=== PATIENT | male | born 1960 | race Caucasian/White ===

== ENCOUNTER → 2018-11-26 | Outpatient (CLI) | payer OTHER ==
[2018-11-26 07:38] LABS: Blood Urea Nitrogen 14 mg/dL (9-20)
--- NOTE | 2018-11-26 09:07 | CT ---
EXAMINATION TYPE: CT pelvis w con DATE OF EXAM: 11/26/2018 COMPARISON: NONE HISTORY: 58-year-old male recent diagnosis of prostate cancer TECHNIQUE: Contiguous axial scanning of the pelvis following administration of 100 ml Isovue 300 IV c ontrast. Delayed images through the bladder and coronal/sagittal reconstructions performed. CT DLP: 555.5 mGycm Automated exposure control for dose reduction was used. FINDINGS: No hydronephrosis. Symmetric uptake of contrast by both kidneys. Nonobstructive calculi are present o n both sides, approximately 3 on the right measuring up to 4 mm and approximately 4 on the left measu ring up to 6 mm. Additional hypodense lesions in both kidneys too small for accurate CT characterization, likely corti jocelynn cysts measuring up to 1.1 cm. Mild to moderate arthroscopic calcifications within the infrarenal abdominal aorta. No dilated small bowel, free fluid, or free air. Moderate stool burden. Redundant sigmoid colon. No p ericolonic inflammatory change. Normal appendix. No retroperitoneal lymphadenopathy in the visualized mid to lower abdomen. Scattered prominent but nonenlarged mesenteric lymph nodes measure up to 5 mm. Mild circumference of bladder wall thickening. Prostate gland shows mildly heterogeneous enhancement and measures 4.3 cm wide. Pelvic lymph nodes. No abnormal fluid collection in the pelvis or pelvic ly mphadenopathy. Bones: Mild degenerative changes at the hips and right greater than left SI joints. Facet arthropathy lower lumbar spine. No suspicious osseous lesion seen. IMPRESSION: 1. Mild prostatomegaly with mild heterogeneous enhancement. The patient's known prostate cancer is no t well-demonstrated by CT. 2. No evidence for pelvic/retroperitoneal lymphadenopathy or suspicious osseous lesions in the lower abdomen or pelvis. 3. Bilateral nonobstructive nephrolithiasis measuring up to 6 mm. Hypodense lesions in the kidneys me asure up to 1.1 cm, too small for accurate CT characterization, likely cysts. 4. Circumferential bladder wall thickening could represent chronic bladder wall hypertrophy or cystit is. Clinically correlate.
--- NOTE | 2018-11-26 18:26 | NM ---
EXAMINATION TYPE: NM bone scan whole body DATE OF EXAM: 11/26/2018 COMPARISON: Correlation CT pelvis same day HISTORY: 58-year-old male history of prostate cancer diagnosed in November 2018 Technique: Delayed whole-body scanning was performed following the injection of 25.7 mCi Tc 99m MDP. Whole-body anterior and posterior images acquired 5 hours post injection. FINDINGS: Degenerative tracer activity at the left hip, shoulders, sternoclavicular joints. No suspicious distr ibution of tracer activity to suggest osseous metastatic disease. IMPRESSION: Some scattered mild degenerative tracer activity. No scintigraphic evidence for osseous metastatic di sease.
== END ==
LOC: RADCTMAIN 06:58
PROVIDERS: ATTEND Urology
DX: C61 Malignant neoplasm of prostate (principal)
CPT/HCPCS: 82565; 84520; 72193; 36415; 78306; A9503; Q9967

== ENCOUNTER → 2018-12-20 | Outpatient (CLI) | payer OTHER ==
[2018-12-20 11:04] LABS: Basophils % (A) 1 %; Eosinophils # (A) 0.1 k/uL (0-0.7); Eosinophils % (A) 4 %; HCT 43.4 % (39.0-53.0); HGB 13.9 gm/dL (13.0-17.5); Lymphocytes % (A) 35 %; MCH 28.2 pg (25.0-35.0); MCV 88.2 fL (80.0-100.0); Mean Platelet Volume 8.6; Monocytes # (A) 0.2 k/uL (0-1.0); Monocytes % (A) 6 %; Neutrophils # (A) 1.4 k/uL (1.3-7.7); Neutrophils % (A) 52 %; Platelet Count 185 k/uL (150-450); RBC 4.93 m/uL (4.30-5.90); RDW 12.9 % (11.5-15.5); WBC 2.8 k/uL (3.8-10.6)
[2018-12-20 11:26] LABS: Anion Gap 10 mmol/L; Blood Urea Nitrogen 11 mg/dL (9-20); Calcium 10.1 mg/dL (8.4-10.2); Carbon Dioxide 28 mmol/L (22-30); Chloride 105 mmol/L (98-107); Glucose 88 mg/dL (74-99); Potassium 4.4 mmol/L (3.5-5.1); Sodium 143 mmol/L (137-145)
== END | disposition home or self-care (01) ==
LOC: LABPAT 09:27
PROVIDERS: ATTEND Urology
DX: Z01.818 Encounter for other preprocedural examination (principal); R53.83 Other fatigue; C61 Malignant neoplasm of prostate; Z79.899 Other long term (current) drug therapy; Z01.812 Encounter for preprocedural laboratory examination
CPT/HCPCS: 80048; 85025; 86850; 86900; 86901; 93005

== ENCOUNTER 2018-12-27 05:54 | Inpatient (IN) | payer OTHER ==
--- NOTE | 2018-12-26 11:35 | P.GSHP ---
History of Present Illness H&P Date: 12/20/18 Chief Complaint: Prostate cancer The patient is a 58-year-old white male whose PSA level was 4.8 in April 2017 and August 2018. A repeat PSA level in September 2018 was 5.1. CARYN revealed the prostate to be moderately enlarged but smooth. He underwent a prostate ultrasound, revealing a prostate volume of 23.4 mL. 5 out of 6 left-sided biopsies showed Mick 68 adenocarcinoma. On the right side, only the right apical biopsy was positive (Mick 3+4, 41%). His metastatic evaluation consisted of a bone scan and computed tomography scan, showing no metastases. He is relatively free of voiding symptoms, but does report occasional erectile dysfunction. - Cardiovascular Cardiovascular: Reports high blood pressure Past Medical History - Past Family History Sister(s) Family Medical History: Cancer Medications and Allergies Home Medications Medication Instructions Recorded Confirmed Type Multivitamin [Multivitamins Adult 1 each PO DAILY 12/21/18 12/21/18 History Gummies] Telmisartan/Hydrochlorothiazid 1 each PO DAILY 12/21/18 12/21/18 History [Micardis Hct 80-12.5 mg Tablet] amLODIPine [Norvasc] 10 mg PO DAILY 12/21/18 12/21/18 History Allergies Allergy/AdvReac Type Severity Reaction Status Date / Time No Known Allergies Allergy Verified 12/21/18 11:10 Surgical - Exam - General well developed, well nourished, no distress - Neck no masses, trachea midline - Respiratory normal respiratory effort, clear to auscultation - Cardiovascular Rhythm: regular Abnormal Heart Sounds: no systolic murmur, no diastolic murmur, no rub, no S3 Gallop, no S4 Gallop, no click, no other - Abdomen Abdomen: soft, non tender, no guarding, no rigid, no rebound - Genitourinary normal penis with no external lesions, testicles non-tender - Rectum Rectum: normal sphincter tone, no masses, other (Prostate mildly enlarged and smooth) - Neurologic no disoriented, no combative - Psychiatric oriented to time, oriented to person, oriented to place, speech is normal, memory intact Assessment and Plan (1) Adenocarcinoma of prostate Status: Acute Code(s): C61 - MALIGNANT NEOPLASM OF PROSTATE SNOMED Code(s): 374410415 Plan: Robotic-assisted laparoscopic prostatectomy (RALP) with bilateral pelvic lymphadenectomy. The procedure has been reviewed in detail with the patient and his . It has been decided to perform a partial right nerve sparing procedure, but no attempt will be made to preserve the left neurovascular bundle. The anticipated perioperative course has been discussed, along with potential risks. These include anesthesia, bleeding, infection, neurovascular injury, bowel injury, urinary leak, lymphocele, and vesical neck contracture. The patient is aware of the likelihood of postoperative urinary incontinence, which may be permanent. He also understands the likelihood of erectile dysfunction despite partial preservation of the right neurovascular bundle. The possible need to convert to an open procedure was discussed, as was the possible need for adjuvant therapy.
[~2018-12-27 05:54] MED LIST: DEXAMETHASONE SOD PHOSPHATE 10 MG/ML 1 ML VIAL IV ONE; LIDOCAINE 1% 20 ML VIAL (10MG/ML) FOR IV START INTRADERMA PRN; MIDAZOLAM (PF) 2 MG/2 ML VIAL IV PRN; ONDANSETRON 4 MG/2 ML VIAL IVP ONE; ceFAZolin IN SWFI 2 GM/20 ML SYRINGE IVP ONE; fentaNYL (PF) 50 MCG/ML 2 ML AMP IV PRN
[2018-12-27] MEDS ORDERED: HEPARIN SODIUM,PORCINE 5,000 UNIT/ML 1 ML VIAL SQ STA (06:30)
[2018-12-27] MEDS: LACTATED RINGERS 1,000 ML IV SCH ×2 (06:43→20:08)
[2018-12-27] MEDS ORDERED: VECURONIUM 10 MG VIAL IV ONE (07:19)
[2018-12-27] MEDS ORDERED: ePHEDrine SULFATE/0.9% NACL/PF 50 MG/5 ML SYRINGE IV ONE (07:19)
[2018-12-27] MEDS ORDERED: PROPOFOL 10 MG/ML 20 ML VIAL IV ONE (07:19)
[2018-12-27] MEDS ORDERED: PHENYLEPHRINE-0.9% NACL SYG 1 MG/10 ML SYRINGE ONE (07:19)
[2018-12-27] MEDS ORDERED: MIDAZOLAM 2 MG/2 ML VIAL ONE (07:19)
[2018-12-27] MEDS ORDERED: SUCCINYLCHOLINE CHLORIDE 100 MG/5 ML SYR IV ONE (07:19)
[2018-12-27] MEDS ORDERED: NEOSTIGMINE 1 MG/ML 10 ML VIAL ONE (07:19)
[2018-12-27] MEDS ORDERED: fentaNYL (PF) 50 MCG/ML 2 ML AMP ONE (07:19)
[2018-12-27] MEDS ORDERED: GLYCOPYRROLATE 0.2 MG/ML 2 ML VIAL ONE (07:19)
[2018-12-27] MEDS ORDERED: LIDOCAINE 1% INJ 10MG/ML (20 ML MDV) ONE (07:19)
[2018-12-27] MEDS ORDERED: BUPIVACAINE (PF) 0.25% 30 ML VIAL SQ ONE ×2 (07:55)
[2018-12-27] MEDS ORDERED: LACTATED RINGERS 1,000 ML IV ONE (10:25)
[2018-12-27] MEDS ORDERED: ACETAMINOPHEN TAB 325 MG TAB PO PRN (10:52)
[2018-12-27] MEDS ORDERED: ONDANSETRON 4 MG/2 ML VIAL IVP PRN (10:52)
[2018-12-27] MEDS: HYDROmorphone 0.5 MG/0.5 ML SYRINGE IVP PRN ×2 (11:26→11:33)
[2018-12-27 13:38] VITALS: BMI 23.9
[2018-12-27] MEDS: KETOROLAC 30 MG/ML 1 ML VIAL IVP PRN ×2 (14:40→23:26)
[2018-12-27] MEDS: DEXTROSE 5%-0.45% NACL 1,000 ML IV SCH ×2 (14:43→20:08)
--- NOTE | 2018-12-27 18:49 | P.OP ---
Date of Procedure: 12/27/18 Preoperative Diagnosis: Adenocarcinoma of the Prostate Postoperative Diagnosis: Same Procedure(s) Performed: Robotic-assisted Laparoscopic Prostatectomy (RALP) with Bilateral Pelvic Lymphadenectomy Anesthesia: FRANK Surgeon: Driss Ward Spanish Medical Interpreter #1: Marely Melendrez Estimated Blood Loss (ml): 50 IV fluids (ml): 1,400 Pathology: other (prostate, seminal vesicles, bilateral pelvic lymph nodes) Condition: stable Disposition: PACU Indications for Procedure: The patient is a 58-year-old white male whose PSA level was 4.8 in April 2017 and August 2018. A repeat PSA level in September 2018 was 5.1. CARYN revealed the prostate to be moderately enlarged but smooth. He underwent a prostate ultrasound, revealing a prostate volume of 23.4 mL. 5 out of 6 left-sided biopsies showed Mick 68 adenocarcinoma. On the right side, only the right apical biopsy was positive (Cement 3+4, 41%). His metastatic evaluation consisted of a bone scan and computed tomography scan, showing no metastases. He is relatively free of voiding symptoms, but does report occasional erectile dysfunction. Operative Findings: No evidence of extraprostatic disease. Description of Procedure: The patient was taken in the operating room and placed in the dorsal lithotomy position, with his legs supported in Bill stirrups. He was carefully positioned on a beanbag for stability. The abdomen and external genitalia were prepped and draped sterilely. A Waite catheter was inserted. The Veress needle was passed through the anterior abdominal wall immediately cephalad to the umbilicus, and insufflation was performed to a pressure of 20 mm Hg. Once insufflation was performed, the Veress needle was removed and a supraumbilical incision was made, through which an 8 mm camera port was placed. Under camera guidance, 3 8 mm robotic ports were placed, 2 on the left and one on the right. An additional 12 mm port was placed on the right lateral side for use as an culture media laboratory assistant port. A 5 mm port was placed cephalad and to the right of the camera port for suction. The patient was placed in Trendelenburg position, and docking was then performed to the da Zo system utilizing a 4-arm approach. The abdomen was examined. The sigmoid colon was mobilized out of the pelvis. The peritoneum was incised lateral to the medial umbilical ligaments bilaterally , exposing the pubis. The peritoneum was then incised across the midline, allowing the bladder flap to be taken down. The endopelvic fascia was opened bilaterally, and muscular attachments from the urogenital diaphragm were swept away from the prostate. Bilateral pelvic lymphadenectomies were performed in the standard fashion. The peritoneal incisions were extended in a cephalad direction, and the vas deferens were divided bilaterally. Margins of dissection were the bifurcation of the iliac vessels proximally, the circumflex iliac vein distally, the genitofemoral nerve laterally, and the obturator nerve medially. A combination of sharp and blunt dissection was used. Care was taken to avoid any neurovascular injury, and the use of monopolar electrocautery was avoided immediately adjacent to neurovascular structures. The lymphatic package was clipped distally. No enlarged lymph nodes were encountered. There were no complications. The vesical neck was incised transversely, down to the lumen. The Waite catheter was brought out through the anterior vesical neck incision and was used for traction. The posterior aspect of the vesical neck was incised, such that the full-thickness of the vesical neck was divided. The anterior layer of the Denonvilliers fascia was incised, exposing the vas deferens. Each were isolated and divided. Next, each of the seminal vesicles were dissected away from adjacent tissues, and vascular attachments were cauterized and divided. The posterior leaf of Denonvilliers fascia was incised transversely, allowing entry into the plane between the prostate and rectum. With lateral spreading, this plane was developed down to the apex. This exposed the lateral vascular pedicles bilaterally. These were clipped and divided in an antegrade fashion, down to the apex. The use of electrocautery was avoided on the right side to prevent thermal damage to the nerves, as a partial nerve sparing procedure was performed on the right. No attempt was made to preserve the left neurovascular bundle.. The remaining apical attachments were swept away from the prostate. The dorsal venous complex was incised, as well as periurethral tissue. At this point, only the urethra remained intact. This was transected immediately distal to the prostatic apex using cold scissors. The specimen was placed within a specimen bag. The dorsal venous complex was sutured using a V-Loc suture in a running fashion. The suture was passed through the periosteum of the pubis periurethral support. A second V-Loc suture was then used to place the Florin stitch, incorporating the rhabdosphincter and the edge of Denonvilliers fascia. This allowed the bladder to be taken down to the urethra, leaving the vesical neck immediately adjacent to the urethra. The vesical neck was somewhat larger in caliber than the urethra. The vesicourethral anastomosis was then performed using a V-Loc suture in a running fashion. A parachute technique was utilized to account for the discrepancy in the caliber of the vesical neck versus the urethra. After completing the anastomosis, an 18-Tamazight Waite catheter was placed and approximately 150 mL of 0.9 normal saline were instilled into the bladder. No extravasation of irrigant from the vesicourethral anastomosis was noted. The patient was returned to the supine position. Undocking was performed, and the specimen bag sutures were passed through the camera port. After removing all the ports and allowing all of the CO2 to be released from the peritoneal cavity, the camera port incision was enlarged to allow removal of the surgical specimen. The fascia of this incision was then closed using 0 Vicryl suture in an interrupted [id number] fashion. Each of the skin incisions were then closed using 4-0 Monocryl suture in a subcuticular fashion. Marcaine was injected at each of the incision sites. Dermabond was applied to each incision. The Waite catheter was connected to gravity drainage. All sponge and needle counts were correct. The patient tolerated the procedure well was taken to the recovery room in stable condition.
[2018-12-27] MEDS: HYDROmorphone 1 MG/ML 1 ML SYRINGE IVP PRN (19:30)
[2018-12-27] MEDS: HEPARIN SODIUM,PORCINE 5,000 UNIT/ML 1 ML VIAL SQ SCH (20:08)
[2018-12-28] MEDS: HYDROmorphone 1 MG/ML 1 ML SYRINGE IVP PRN ×2 (00:44→09:42)
[2018-12-28] MEDS: DEXTROSE 5%-0.45% NACL 1,000 ML IV SCH ×3 (03:37→21:52)
[2018-12-28] MEDS: KETOROLAC 30 MG/ML 1 ML VIAL IVP PRN ×3 (06:46→23:02)
[2018-12-28] MEDS: HEPARIN SODIUM,PORCINE 5,000 UNIT/ML 1 ML VIAL SQ SCH ×2 (09:42→20:30)
[2018-12-28] MEDS: LOSARTAN 50 MG TAB PO SCH (09:43)
[2018-12-28] MEDS: HYDROCHLOROTHIAZIDE 12.5 MG CAP PO SCH (09:43)
[2018-12-28] MEDS: amLODIPine 10 MG TAB PO SCH (09:43)
[2018-12-28] MEDS ORDERED: HYDROcodone/APAP 5-325MG 1 EACH TAB PO PRN (11:26)
--- NOTE | 2018-12-28 18:25 | P.PN ---
Subjective Progress Note Date: 12/28/18 Principal diagnosis: is: POD #1, s/p RALP Patient is tolerating CLD but has only ambulated once. He has no specific complaints. Objective - Vital Signs Vital signs: Vital Signs Temp 97.6 F 12/28/18 07:00 Pulse 65 12/28/18 07:00 Resp 16 12/28/18 07:00 BP 116/72 12/28/18 07:00 Pulse Ox 97 12/28/18 07:00 Intake & Output 12/27/18 12/28/18 12/28/18 18:59 06:59 18:59 Intake Total 2024 200 Output Total 675 1950 1550 Balance 1350 -1950 -1350 Intake: IV 1900 Intake, IV Titration 125 Amount Dextrose 5%-0.45% NaCl 1, 125 000 ml @ 125 mls/hr IV . Q8H TROY Rx#:[id number] Other 200 Output: Urine 625 1950 1550 Uretheral (Waite) 1550 Estimated Blood Loss 50 Other: Voiding Method Indwelling Catheter Indwelling Catheter Indwelling Catheter # Voids 3 - Constitutional General appearance: Present: average body habitus, cooperative, no acute distress - Gastrointestinal Gastrointestinal Comment(s): Soft, non-distended. Incisions clean and dry. Urine clear per Waite. - Psychiatric Psychiatric: Present: A&O x's 3, appropriate affect Assessment and Plan (1) Adenocarcinoma of prostate Current Visit: Yes Status: Acute Code(s): C61 - MALIGNANT NEOPLASM OF PROSTATE SNOMED Code(s): 524599557 Plan: Patient is overall doing well. Ambulation encouranged. Anticipate discharge home tomorrow.
[2018-12-28] MEDS: LACTATED RINGERS 1,000 ML IV SCH (20:26)
[2018-12-28] MEDS: HYDROcodone/APAP 5-325MG 1 EACH TAB PO PRN (21:52)
[2018-12-29] MEDS: DEXTROSE 5%-0.45% NACL 1,000 ML IV SCH ×2 (04:01→12:17)
[2018-12-29] MEDS: HEPARIN SODIUM,PORCINE 5,000 UNIT/ML 1 ML VIAL SQ SCH (07:26)
[2018-12-29] MEDS: LOSARTAN 50 MG TAB PO SCH (07:26)
[2018-12-29] MEDS: amLODIPine 10 MG TAB PO SCH (07:27)
[2018-12-29] MEDS: HYDROcodone/APAP 5-325MG 1 EACH TAB PO PRN (07:27)
[2018-12-29] MEDS: HYDROCHLOROTHIAZIDE 12.5 MG CAP PO SCH (07:27)
[2018-12-29 08:03] VITALS: RESP 12
--- NOTE | 2018-12-29 09:29 | P.DS ---
Providers Date of admission: 12/27/18 05:54 Expected date of discharge: 12/29/18 Attending physician: Driss Ward Primary care physician: Wes Dumas - Discharge Diagnosis(es) (1) Adenocarcinoma of prostate Current Visit: Yes Status: Acute Hospital Course: On the day of admission, the patient underwent an uncomplicated robotic assisted laparoscopic prostatectomy (RALP) with bilateral pelvic lymphadenectomy. The postoperative course was unremarkable. He remained afebrile with stable vital signs. On the first postoperative day, he experienced considerable abdominal wall discomfort, limiting his mobility. He ambulated once. On the second postoperative day, he was feeling considerably better. He was tolerating diet but reported a poor appetite. However, he was drinking plenty of fluids. Procedures: RALP with bilateral pelvic lymphadenectomy on 12/27/2018. Patient Condition at Discharge: Good Plan - Discharge Summary Discharge Rx Participant: No New Discharge Prescriptions: New Ciprofloxacin HCl [Cipro] 250 mg PO Q12HR #6 tablet Hydrocodone/Acetaminophen [[place] 5-325] 1 - 2 each PO Q4HR PRN #6 tab PRN Reason: Pain Ketorolac [Toradol] 10 mg PO Q6HR #12 tab No Action amLODIPine [Norvasc] 10 mg PO DAILY Telmisartan/Hydrochlorothiazid [Micardis Hct 80-12.5 mg Tablet] 1 tab PO DAILY Multivitamin [Multivitamins Adult Gummies] 1 tab PO DAILY Discharge Medication List Multivitamin [Multivitamins Adult Gummies] 1 tab PO DAILY 12/21/18 [History] Telmisartan/Hydrochlorothiazid [Micardis Hct 80-12.5 mg Tablet] 1 tab PO DAILY 12/21/18 [History] amLODIPine [Norvasc] 10 mg PO DAILY 12/21/18 [History] Ciprofloxacin HCl [Cipro] 250 mg PO Q12HR #6 tablet 12/28/18 [Rx] Hydrocodone/Acetaminophen [[place] 5-325] 1 - 2 each PO Q4HR PRN #6 tab 12/28/18 [ Rx] Ketorolac [Toradol] 10 mg PO Q6HR #12 tab 12/29/18 [Rx] Follow up Appointment(s)/Referral(s): Patel Emmanuel MD [STAFF PHYSICIAN] - 01/08/19 Activity/Diet/Wound Care/Special Instructions: Discharge home with Waite catheter. Instruct patient to use overnight drainage bag as well as urinary leg bag. Okay to shower. Diet as tolerated. No lifting , driving, or strenuous activity. Reassure patient that abdominal wall ecchymosis and penoscrotal swelling are normal. Instruct patient to begin taking antibiotics one day prior to Waite catheter removal. Discharge Disposition: HOME SELF-CARE
[2018-12-29 15:24] VITALS: BP 118/67; PULSE 75; TEMP 98.6
== END 2018-12-29 16:30 | disposition home or self-care (01) | DRG 708 ==
LOC: 2ORMAIN 05:54 → 4SSUR 11:16
PROVIDERS: ADMIT Urology; ATTEND Urology
PROC: 07BC4ZZ Excision of Pelvis Lymphatic, Percutaneous Endoscopic Approach (ICD-10-PCS; 2018-12-27)
PROC: 8E0W4CZ Robotic Assisted Procedure of Trunk Region, Percutaneous Endoscopic Approach (ICD-10-PCS; 2018-12-27)
PROC: 0VT04ZZ Resection of Prostate, Percutaneous Endoscopic Approach (ICD-10-PCS; principal; 2018-12-27 07:30)
DX: C61 Malignant neoplasm of prostate (principal); N52.9 Male erectile dysfunction, unspecified; I10 Essential (primary) hypertension; Z87.442 Personal history of urinary calculi; Z79.899 Other long term (current) drug therapy
CPT/HCPCS: 86850; 86900; 86901; 88307; 88309; 94760

== ENCOUNTER → 2019-01-16 | Outpatient (CLI) | payer OTHER | END | disposition home or self-care (01) | LOC: LABWHC1 13:20 | PROVIDERS: ATTEND Urology | DX: C61 Malignant neoplasm of prostate (principal) | CPT/HCPCS: 36415; 84153 ==

== ENCOUNTER → 2019-02-21 | Outpatient (CLI) | payer OTHER | END | disposition home or self-care (01) | LOC: LABWHC1 13:55 | PROVIDERS: ATTEND Urology | DX: C61 Malignant neoplasm of prostate (principal) | CPT/HCPCS: 36415; 84153 ==

== ENCOUNTER → 2019-05-30 | Outpatient (CLI) | payer OTHER | END | disposition home or self-care (01) | LOC: LABWHC1 10:54 | PROVIDERS: ATTEND Urology | DX: C61 Malignant neoplasm of prostate (principal) | CPT/HCPCS: 36415; 84153 ==

== ENCOUNTER 2019-06-13 11:24 | Emergency (ER) | payer OTHER ==
--- NOTE | 2019-06-13 11:47 | ED ---
Upper Extremity HPI - General Chief Complaint: Extremity Injury, Upper Stated Complaint: Finger injury Time Seen by Provider: 06/13/19 11:35 Source: patient Mode of arrival: ambulatory Limitations: no limitations - History of Present Illness Initial Comments: Patient is a 59-year-old male presenting to the emergency Department with complaints of stiffness and pain in his right middle finger x 1 month. Patient states he fell onto his right hand and injured his right middle finger about a month ago. Patient states he has had minimal pain in the finger but he has been unable to bend the finger. Patient states his also been swollen since the fall. Patient is right-hand dominant. Patient has no other complaints at this time. He denies fever, chills. - Related Data Home Medications Medication Instructions Recorded Confirmed Multivitamin [Multivitamins Adult 1 tab PO DAILY 12/21/18 12/27/18 Gummies] Telmisartan/Hydrochlorothiazid 1 tab PO DAILY 12/21/18 12/27/18 [Micardis Hct 80-12.5 mg Tablet] amLODIPine [Norvasc] 10 mg PO DAILY 12/21/18 12/27/18 Previous Rx's Medication Instructions Recorded Ciprofloxacin HCl [Cipro] 250 mg PO Q12HR #6 tablet 12/28/18 Hydrocodone/Acetaminophen [Cotopaxi 1 - 2 each PO Q4HR PRN #6 tab 12/28/18 5-325] Ketorolac [Toradol] 10 mg PO Q6HR #12 tab 12/29/18 Allergies Allergy/AdvReac Type Severity Reaction Status Date / Time No Known Allergies Allergy Verified 06/13/19 11:27 Review of Systems ROS Statement: Those systems with pertinent positive or pertinent negative responses have been documented in the HPI. ROS Other: All systems not noted in ROS Statement are negative. Past Medical History Past Medical History: Cancer, Hypertension Additional Past Medical History / Comment(s): hx. prostate cancer, kidney stones History of Any Multi-Drug Resistant Organisms: None Reported Past Surgical History: Tonsillectomy Additional Past Surgical History / Comment(s): colonoscopy Past Anesthesia/Blood Transfusion Reactions: No Reported Reaction Past Psychological History: No Psychological Hx Reported Smoking Status: Never smoker - Past Family History Sister(s) Family Medical History: Cancer General Exam - General Exam Comments Initial Comments: GENERAL: Well-appearing, well-nourished and in no acute distress. HEAD: Atraumatic, normocephalic. EYES: Pupils equal round and reactive to light, extraocular movements intact, sclera anicteric, conjunctiva are normal. ENT: Nares patent, oropharynx clear without exudates. Moist mucous membranes. NECK: Normal range of motion, supple without lymphadenopathy or JVD. LUNGS: Breath sounds clear to auscultation bilaterally and equal. No wheezes rales or rhonchi. HEART: Regular rate and rhythm without murmurs, rubs or gallops. ABDOMEN: Soft, nontender, normoactive bowel sounds. No guarding, no rebound. No masses appreciated. : Deferred EXTREMITIES: Patient has swelling of the right middle finger, decreased range of motion at the IP joint and pain with flexion of the IP joint. Neurovascular intact. No clubbing or cyanosis. NEUROLOGICAL: Cranial nerves II through XII grossly intact. Normal speech, normal gait. PSYCH: Normal mood, normal affect. SKIN: Warm, Dry, normal turgor, no rashes or lesions noted. Limitations: no limitations Course Vital Signs 06/13/19 06/13/19 11:26 12:51 Temperature 97.8 F 98.0 F Pulse Rate 85 80 Respiratory 18 16 Rate Blood Pressure 150/97 136/84 O2 Sat by Pulse 98 99 Oximetry Medical Decision Making - Medical Decision Making Patient is a 59-year-old male with complaints of right middle finger pain and swelling 1 month. Patient states he fell onto his right hand about a month ago and his right middle finger has been swelling and decreased range of motion. On exam patient has mild swelling of the entire right middle finger as well as decreased range of motion of the IP joint. X-ray of the right hand shows no definite acute fracture dislocation. They recommend follow-up in 7-10 days if symptoms continue. These findings were discussed with the patient he will follow up with his PCP and/or orthopedic as needed for further treatment. Case discussed with Dr. Pinto. Return parameters were discussed with the patient he verbalized understanding. Patient is stable for discharge and he is in agreement with this plan. Disposition Clinical Impression: Pain of right middle finger Disposition: HOME SELF-CARE Condition: Stable Instructions (If sedation given, give patient instructions): Finger Sprain (ED) Additional Instructions: Please return to the Emergency Department if symptoms worsen or any other concerns. Follow-up with PCP or orthopedics if symptoms persist. Is patient prescribed a controlled substance at d/c from ED?: No Referrals: Wes Dumas MD [Primary Care Provider] - 1-2 days Brian Muñoz DO [Medical Doctor] - 1-2 days
--- NOTE | 2019-06-13 12:25 | XR ---
EXAMINATION TYPE: XR hand complete RT DATE OF EXAM: 06/13/2019 COMPARISON: NONE HISTORY: 3RD DIGIT PAIN TECHNIQUE: Three views are submitted. FINDINGS: The osseous structures are intact. The joint spaces are preserved and there is no acute fracture or dislocation. IMPRESSION: 1. No definite acute fracture or dislocation if symptoms persist, follow-up study in 7 to 10 days wo uld be suggested
[2019-06-13 12:54] VITALS: BP 136/84; PULSE 80; RESP 16; TEMP 98
== END 2019-06-13 12:50 | disposition home or self-care (01) ==
LOC: EC 11:24
DX: M79.644 Pain in right finger(s) (principal); I10 Essential (primary) hypertension; Z79.899 Other long term (current) drug therapy; Z85.46 Personal history of malignant neoplasm of prostate
CPT/HCPCS: 99283

== ENCOUNTER → 2019-08-29 | Outpatient (CLI) | payer OTHER | END | disposition home or self-care (01) | LOC: LABWHC1 16:20 | PROVIDERS: ATTEND Urology | DX: C61 Malignant neoplasm of prostate (principal) | CPT/HCPCS: 36415; 84153 ==

== ENCOUNTER → 2020-01-03 | Outpatient (CLI) | payer OTHER | END | disposition home or self-care (01) | LOC: LABWHC1 12:22 | PROVIDERS: ATTEND Urology | DX: C61 Malignant neoplasm of prostate (principal) | CPT/HCPCS: 36415; 84153 ==

== ENCOUNTER → 2021-01-15 | Outpatient (CLI) | payer OTHER | END | disposition home or self-care (01) | LOC: LABWHC1 10:32 | PROVIDERS: ATTEND Urology | DX: C61 Malignant neoplasm of prostate (principal) | CPT/HCPCS: 36415; 84153 ==

== ENCOUNTER → 2022-01-13 | Outpatient (CLI) | payer OTHER | END | disposition home or self-care (01) | LOC: LABWHC1 10:16 | PROVIDERS: ATTEND Urology | DX: C61 Malignant neoplasm of prostate (principal) | CPT/HCPCS: 36415; 84153 ==

== ENCOUNTER → 2022-04-20 | Outpatient (CLI) | payer OTHER ==
--- NOTE | 2022-04-20 12:18 | CT ---
EXAMINATION TYPE: CT chest wo/w con DATE OF EXAM: 04/20/2022 COMPARISON: None available HISTORY: Hemoptysis, trouble clearing throat CT DLP: 1240.12 mGycm Automated exposure control for dose reduction was used. TECHNIQUE: CT scan of the chest is performed without and with IV Contrast, patient injected with 70-used with ne ck scan mL of Isovue 300. FINDINGS: LUNGS: Minimal scattered linear pulmonary atelectasis. Minimal bilateral apical pulmonary fibrotic ch anges. Unremarkable lungs otherwise. Patent central airways. No pleural effusion MEDIASTINUM: There are no greater than 1 cm hilar or mediastinal lymph nodes. No cardiomegaly. Dilat ed ascending aorta measuring up to 4 cm. Scattered arterial atherosclerotic calcifications. No perica rdial effusion is seen. OTHER: Right hepatic lobe subcentimeter hypodensity likely representing a tiny cyst. Degenerative ch anges of the thoracic spine. No aggressive bone lesion. IMPRESSION: No definite suspicious lung lesion or thoracic lymphadenopathy. Dilated ascending aorta measuring up to 4 cm. Other incidental findings as described above.
--- NOTE | 2022-04-20 12:26 | CT ---
EXAMINATION TYPE: CT soft tissue neck w con DATE OF EXAM: 04/20/2022 10:32 AM COMPARISON: None available HISTORY: Hemoptysis, trouble clearing throat CT DLP: 685.91 mGycm Automated exposure control for dose reduction was used. CONTRAST: CT scan of the neck is performed following with IV Contrast, patient injected with 70-used for dual e xam mL of Isovue 300. Axial images are obtained, coronal and sagittal reformatted images are reviewe d. FINDINGS: Grossly unremarkable nasopharynx, oropharynx, hypopharynx, larynx, trachea and visualized portion of the esophagus. Unremarkable thyroid gland. Symmetrical and unremarkable parotid and submandibular andre ivary glands. No pathologically enlarged lymph nodes in the neck. Scattered arteriosclerotic calcifications. Patent Major neck vessels. Left maxillary sinus polyp/retention cyst measuring 2.8 cm. Degenerative changes of the cervical spine. IMPRESSION: No suspicious neck lesion or cervical lymphadenopathy. A subtle pharyngeal or laryngeal lesion can't be excluded by this CT scan. Incidental findings as described above.
== END | disposition home or self-care (01) ==
LOC: RADCTMAIN 09:55
PROVIDERS: ATTEND Otolaryngology
DX: I70.0 Atherosclerosis of aorta (principal)
CPT/HCPCS: 70491; 71270; Q9967

== ENCOUNTER → 2023-02-20 | Outpatient (CLI) | payer OTHER | END | disposition home or self-care (01) | LOC: LABWHC1 14:00 | PROVIDERS: ATTEND Urology | DX: C61 Malignant neoplasm of prostate (principal) | CPT/HCPCS: 36415; 84153 ==

== ENCOUNTER 2023-03-14 12:02 | Emergency (ER) | payer OTHER ==
--- NOTE | 2023-03-14 12:09 | ED ---
General Adult HPI - General Source: RN notes reviewed <Ilsa Oconnell - Last Filed: 03/14/23 12:09> - General Source: patient Mode of arrival: ambulatory Limitations: no limitations - History of Present Illness Onset/Timin -: week(s) Location: back Quality: aching, dull Consistency: constant Improves with: none Worsens with: none Treatments Prior to Arrival: none <Joseph Oswald - Last Filed: 03/14/23 17:25> - General Stated complaint: dizziness Time Seen by Provider: 03/14/23 12:08 - History of Present Illness Initial comments: 63-year-old male with past medical history of hypertension presents to the emergency department with a chief complaint of dizziness. He is also complaining of back pain . Symptoms started approximately one week ago. (Ilsa Oconnell) This patient is a 63-year-old man who presents with a constellation of complaints that started coming on proximally 2 weeks ago. The patient states that he has previously had vertigo when he had a recurrence of that starting 2 weeks ago, but the usual for him is to last for a day to 2 and resolved. He states that this has been going on for nearly 2 weeks. He notes that it was much more intense on onset. He did get a spinning feeling mainly with changing the position of his head quickly. He also has been having some congestion. He has not noted fever or chills. In addition the patient has had some bilateral thoracic back pain. He states that it feels achy. He has had his rubbed the area and that does seem to help. The pain is not midline. No neurologic symptoms associated. He states that since she has not been feeling well his blood pressure has been higher than is usual for him, even though he is compliant with his medications. Has not noted chest pain. No neurologic symptoms other than the vertigo. (Joseph Oswald) - Related Data Home Medications Medication Instructions Recorded Confirmed Multivitamin [Multivitamins Adult 1 tab PO DAILY 12/21/18 12/27/18 Gummies] Telmisartan/Hydrochlorothiazid 1 tab PO DAILY 12/21/18 12/27/18 [Micardis Hct 80-12.5 mg Tablet] amLODIPine [Norvasc] 10 mg PO DAILY 12/21/18 12/27/18 Previous Rx's Medication Instructions Recorded Ciprofloxacin HCl [Cipro] 250 mg PO Q12HR #6 tablet 12/28/18 Hydrocodone/Acetaminophen [[place] 1 - 2 each PO Q4HR PRN #6 tab 12/28/18 5-325] Ketorolac [Toradol] 10 mg PO Q6HR #12 tab 12/29/18 Allergies Allergy/AdvReac Type Severity Reaction Status Date / Time No Known Allergies Allergy Verified 03/14/23 12:08 Review of Systems ROS Other: All systems not noted in ROS Statement are negative. <Ilsa Oconnell - Last Filed: 03/14/23 12:09> ROS Other: All systems not noted in ROS Statement are negative. Constitutional: Denies: fever, chills Eyes: Denies: vision change ENT: Reports: congestion. Denies: ear pain, hearing loss Respiratory: Denies: cough, dyspnea Cardiovascular: Denies: chest pain, palpitations, orthopnea, edema, syncope Gastrointestinal: Denies: abdominal pain, nausea, vomiting, diarrhea Genitourinary: Denies: dysuria, hematuria Musculoskeletal: Reports: as per HPI, back pain Skin: Denies: rash Neurological: Denies: headache, weakness, numbness, paresthesias <Joseph Oswald - Last Filed: 03/14/23 17:25> ROS Statement: Those systems with pertinent positive or pertinent negative responses have been documented in the HPI. Past Medical History Past Medical History: Cancer, Hypertension Additional Past Medical History / Comment(s): hx. prostate cancer, kidney stones History of Any Multi-Drug Resistant Organisms: None Reported Past Surgical History: Tonsillectomy Additional Past Surgical History / Comment(s): colonoscopy Past Anesthesia/Blood Transfusion Reactions: No Reported Reaction Past Psychological History: No Psychological Hx Reported - Past Family History Sister(s) Family Medical History: Cancer <Ilsa Oconnell - Last Filed: 03/14/23 12:09> General Exam <Ilsa Oconnell - Last Filed: 03/14/23 12:09> General appearance: alert, in no apparent distress Head exam: Present: atraumatic, normocephalic Eye exam: Present: normal appearance, PERRL, EOMI. Absent: scleral icterus, conjunctival injection, nystagmus ENT exam: Present: normal oropharynx, mucous membranes moist Neck exam: Present: normal inspection, full ROM. Absent: tenderness, meningis mus Respiratory exam: Present: normal lung sounds bilaterally. Absent: respiratory distress, wheezes, rales, rhonchi, stridor Cardiovascular Exam: Present: regular rate, normal rhythm, normal heart sounds. Absent: systolic murmur, diastolic murmur, rubs, gallop GI/Abdominal exam: Present: soft. Absent: distended, tenderness, guarding, rebound, rigid, mass Extremities exam: Present: normal inspection, normal capillary refill. Absent: pedal edema, calf tenderness Back exam: Present: normal inspection, paraspinal tenderness. Absent: CVA tenderness (R), CVA tenderness (L), vertebral tenderness Neurological exam: Present: alert, oriented X3, CN II-XII intact. Absent: motor sensory deficit Skin exam: Present: warm, dry, intact, normal color. Absent: rash <Joseph Oswald - Last Filed: 03/14/23 17:25> - General Exam Comments Initial Comments: Visual Physical Exam Vital signs reviewed General: Well-appearing, nontoxic, no acute distress. Head: Normocephalic, atraumatic Eyes: PERRLA, EOMI ENT: Airway patent Chest: Nonlabored breathing Skin: No visual rash, normal skin tone Neuro: Alert and oriented 3 Musculoskeletal: No gross abnormalities (Franciscai,Ilsa) Course Vital Signs 03/14/23 03/14/23 03/14/23 12:05 15:12 16:55 Pulse Rate 99 81 80 Respiratory 20 18 16 Rate Blood Pressure 177/119 146/103 135/92 O2 Sat by Pulse 100 100 96 Oximetry EKG Findings - EKG Results: EKG: interpreted by ERMD, sinus rhythm (Rate 85 BPM), normal axis, normal QRS - Blocks, [place], Hypertrophy, ST Abn: Repolarization changes or abnormalities: nonspecific abnormality, ST segment, and/or T wave <Joseph Oswald - Last Filed: 03/14/23 17:25> Medical Decision Making - Lab Data Result diagrams: 03/14/23 12:10 03/14/23 12:20 <Joseph Oswald Last Filed: 03/14/23 17:25> - Medical Decision Making The patient had 2 view chest x-ray which I interpreted as not showing acute infiltrate, congestive heart failure or pneumothorax. The patient had CT angiography of the neck and brain which I interpreted as not showing acute arterial occlusion, bleed, or large aneurysm. (Joseph Oswald) - Lab Data Lab Results 03/14/23 03/14/23 03/14/23 Range/Units 12:10 12:20 12:20 WBC 3.8 (3.8-10.6) k/uL RBC 4.94 (4.30-5.90) m/uL Hgb 14.6 (13.0-17.5) gm/dL Hct 42.2 (39.0-53.0) % MCV 85.5 (80.0-100.0) fL MCH 29.5 (25.0-35.0) pg MCHC 34.4 (31.0-37.0) g/dL RDW 12.7 (11.5-15.5) % Plt Count 246 (150-450) k/uL MPV 7.5 Neutrophils % 58 % Lymphocytes % 33 % Monocytes % 5 % Eosinophils % 2 % Basophils % 0 % Neutrophils # 2.2 (1.3-7.7) k/uL Lymphocytes # 1.2 (1.0-4.8) k/uL Monocytes # 0.2 (0-1.0) k/uL Eosinophils # 0.1 (0-0.7) k/uL Basophils # 0.0 (0-0.2) k/uL PT 10.6 (9.0-12.0) sec INR 1.0 (<1.2) APTT 26.2 (22.0-30.0) sec D-Dimer (<0.60) mg/L FEU Sodium 139 (137-145) mmol/L Potassium 4.8 (3.5-5.1) mmol/L Chloride 99 (98-107) mmol/L Carbon Dioxide 26 (22-30) mmol/L Anion Gap 14 mmol/L BUN 14 (9-20) mg/dL Creatinine 1.00 (0.66-1.25) mg/dL Est GFR (CKD-EPI)AfAm >90 (>60 ml/min/1.73 sqM) Est GFR (CKD-EPI)NonAf 81 (>60 ml/min/1.73 sqM) Glucose 95 (74-99) mg/dL Calcium 10.6 H (8.4-10.2) mg/dL Magnesium 1.9 (1.6-2.3) mg/dL Total Bilirubin 1.2 (0.2-1.3) mg/dL AST 49 (17-59) U/L ALT 46 (4-49) U/L Alkaline Phosphatase 69 (38-126) U/L Troponin I (0.000-0.034) ng/mL Total Protein 8.7 H (6.3-8.2) g/dL Albumin 5.3 H (3.5-5.0) g/dL Urine Color Urine Appearance (Clear) Urine pH (5.0-8.0) Ur Specific [place] (1.001-1.035) Urine Protein (Negative) Urine Glucose (UA) (Negative) Urine Ketones (Negative) Urine Blood (Negative) Urine Nitrite (Negative) Urine Bilirubin (Negative) Urine Urobilinogen (<2.0) mg/dL Ur Leukocyte Esterase (Negative) 03/14/23 03/14/23 03/14/23 Range/Units 12:20 15:48 15:48 WBC (3.8-10.6) k/uL RBC (4.30-5.90) m/uL Hgb (13.0-17.5) gm/dL Hct (39.0-53.0) % MCV (80.0-100.0) fL MCH (25.0-35.0) pg MCHC (31.0-37.0) g/dL RDW (11.5-15.5) % Plt Count (150-450) k/uL MPV Neutrophils % % Lymphocytes % % Monocytes % % Eosinophils % % Basophils % % Neutrophils # (1.3-7.7) k/uL Lymphocytes # (1.0-4.8) k/uL Monocytes # (0-1.0) k/uL Eosinophils # (0-0.7) k/uL Basophils # (0-0.2) k/uL PT (9.0-12.0) sec INR (<1.2) APTT (22.0-30.0) sec D-Dimer <0.17 (<0.60) mg/L FEU Sodium (137-145) mmol/L Potassium (3.5-5.1) mmol/L Chloride (98-107) mmol/L Carbon Dioxide (22-30) mmol/L Anion Gap mmol/L BUN (9-20) mg/dL Creatinine (0.66-1.25) mg/dL Est GFR (CKD-EPI)AfAm (>60 ml/min/1.73 sqM) Est GFR (CKD-EPI)NonAf (>60 ml/min/1.73 sqM) Glucose (74-99) mg/dL Calcium (8.4-10.2) mg/dL Magnesium (1.6-2.3) mg/dL Total Bilirubin (0.2-1.3) mg/dL AST (17-59) U/L ALT (4-49) U/L Alkaline Phosphatase (38-126) U/L Troponin I <0.012 (0.000-0.034) ng/mL Total Protein (6.3-8.2) g/dL Albumin (3.5-5.0) g/dL Urine Color Yellow Urine Appearance Clear (Clear) Urine pH 7.0 (5.0-8.0) Ur Specific [place] 1.017 (1.001-1.035) Urine Protein Trace H (Negative) Urine Glucose (UA) Negative (Negative) Urine Ketones Trace H (Negative) Urine Blood Negative (Negative) Urine Nitrite Negative (Negative) Urine Bilirubin Negative (Negative) Urine Urobilinogen <2.0 (<2.0) mg/dL Ur Leukocyte Esterase Negative (Negative) Disposition <Ilsa Oconnell - Last Filed: 03/14/23 12:09> Is patient prescribed a controlled substance at d/c from ED?: No <Joseph Oswald - Last Filed: 03/14/23 17:25> Clinical Impression: Vertigo, Hypertension Disposition: HOME SELF-CARE Condition: Good Instructions (If sedation given, give patient instructions): Vertigo (ED), Hypertension (ED) Referrals: Han Garcia MD [Primary Care Provider] - 1-2 days
[2023-03-14 12:35] LABS: Basophils % (A) 0 %; Eosinophils # (A) 0.1 k/uL (0-0.7); Eosinophils % (A) 2 %; HCT 42.2 % (39.0-53.0); HGB 14.6 gm/dL (13.0-17.5); Lymphocytes # (A) 1.2 k/uL (1.0-4.8); Lymphocytes % (A) 33 %; MCH 29.5 pg (25.0-35.0); MCHC 34.4 g/dL (31.0-37.0); MCV 85.5 fL (80.0-100.0); Mean Platelet Volume 7.5; Monocytes # (A) 0.2 k/uL (0-1.0); Monocytes % (A) 5 %; Neutrophils # (A) 2.2 k/uL (1.3-7.7); Neutrophils % (A) 58 %; Platelet Count 246 k/uL (150-450); RBC 4.94 m/uL (4.30-5.90); RDW 12.7 % (11.5-15.5); WBC 3.8 k/uL (3.8-10.6)
[2023-03-14 12:49] LABS: Partial Thromboplastin Time 26.2 sec (22.0-30.0); Prothrombin Time 10.6 sec (9.0-12.0)
[2023-03-14 12:58] LABS: ALT 46 U/L (4-49); AST 49 U/L (17-59); African American GFR (CKD) >90 (>60 ml/min/1.73 sqM); Albumin 5.3 g/dL (3.5-5.0); Alkaline Phosphatase 69 U/L (38-126); Anion Gap 14 mmol/L; Blood Urea Nitrogen 14 mg/dL (9-20); Calcium 10.6 mg/dL (8.4-10.2); Carbon Dioxide 26 mmol/L (22-30); Chloride 99 mmol/L (98-107); Glucose 95 mg/dL (74-99); Magnesium 1.9 mg/dL (1.6-2.3); Non-African American GFR(CKD) 81 (>60 ml/min/1.73 sqM); Potassium 4.8 mmol/L (3.5-5.1); Sodium 139 mmol/L (137-145); Total Bilirubin 1.2 mg/dL (0.2-1.3); Total Protein 8.7 g/dL (6.3-8.2)
--- NOTE | 2023-03-14 12:59 | XR ---
EXAMINATION TYPE: XR chest 2V DATE OF EXAM: 03/14/2023 12:54 PM COMPARISON: None TECHNIQUE: XR chest 2V Frontal and lateral views of the chest. CLINICAL INDICATION:Male, 63 years old with history of Back pain; FINDINGS: Lungs/Pleura: There is no evidence of pleural effusion, focal consolidation, or pneumothorax. Pulmonary vascularity: Unremarkable. Heart/mediastinum: Cardiomediastinal silhouette is unremarkable. Musculoskeletal: No acute osseous pathology. IMPRESSION: No acute cardiopulmonary disease/process.
[2023-03-14 16:11] LABS: Appearance,Urine Clear (Clear); Bilirubin,Urine Negative (Negative); Blood,Urine Negative (Negative); Color,Urine Yellow; Glucose,Urine (UA) Negative (Negative); Ketones,Urine Trace (Negative); Leukocyte Esterase,Urine Negative (Negative); Nitrite,Urine Negative (Negative); Protein,Urine Trace (Negative); Specific Gravity,Urine 1.017 (1.001-1.035); Urobilinogen,Urine <2.0 mg/dL (<2.0)
--- NOTE | 2023-03-14 16:36 | CT ---
EXAMINATION TYPE: CT angio head neck DATE OF EXAM: 03/14/2023 COMPARISON: None HISTORY: 63-year-old male vertigo TECHNIQUE: Contiguous axial scanning of the head performed without and with IV Contrast, patient inje cted with 65cc mL of Isovue 370. Subsequent postcontrast scanning of the neck after IV contrast. Tana nal and sagittal reconstructions performed. 3-D reconstructions generated on a dedicated independent workstation. CT DLP: 1778.1 mGycm Automated exposure control for dose reduction was used. FINDINGS: Noncontrast CT head: No evidence for acute hemorrhage, acute ischemic change, mass, mass effect, midline shift, or extra-a xial fluid collection. No hydrocephalus. No effacement of cerebral sulci or basal subarachnoid cister ns. Isaac-white matter differentiation is maintained. Some punctate benign bilateral basal ganglionic calcifications are present. 2.3 cm mucous retention cyst floor of the left maxillary sinus. Mastoid air cells well pneumatized. O rbits and globes are intact. CTA neck: Conventional branching anatomy. Codominant vertebral arteries with mild atherosclerotic narrowing at the origin of the left vertebral artery. Both vessels are otherwise patent throughout the course. Mild atherosclerotic change of the bilateral carotid bifurcations. The right common and right internal carotid arteries are widely patent by NASCET criteria. The left common carotid artery is patent. There is mild, 20% proximal left ICA stenosis by NASCET criteria. Remainder of the cervical internal carotid arteries are patent. CTA HEAD: Both vertebral and basilar arteries are patent as is the remainder of the posterior circulation. The dural venous sinuses are patent. Both internal carotid arteries and remainder of the anterior circulation is patent. No aneurysmal changes seen. IMPRESSION: 1. NO ACUTE INTRACRANIAL ABNORMALITY SEEN. 2. NO LARGE VESSEL INTRACRANIAL ARTERIAL OCCLUSION, SIGNIFICANT STENOSIS, OR ANEURYSMAL CHANGE IS SEE N. 3. IN THE NECK, THERE IS MILD IS CARDIAC NARROWING AT THE ORIGIN OF THE LEFT VERTEBRAL ARTERY. ALS O, MILD, 20% PROXIMAL LEFT ICA STENOSIS.
[2023-03-14 16:56] VITALS: BP 135/92; PULSE 80; RESP 16
== END 2023-03-14 17:33 | disposition home or self-care (01) ==
LOC: EC 12:02
DX: R42 Dizziness and giddiness (principal); I10 Essential (primary) hypertension; Z79.899 Other long term (current) drug therapy
CPT/HCPCS: 36415; 93005; 85379; 80053; 83735; 84484; 85025; 85610; 85730; 81003; 71046; 70496; 70498; 99284; 96374; J3360; Q9967

== ENCOUNTER → 2023-04-17 | Outpatient (CLI) | payer OTHER ==
--- NOTE | 2023-04-17 12:07 | CT ---
EXAMINATION TYPE: CT chest wo con DATE OF EXAM: 04/17/2023 COMPARISON: Chest CT April 20, 2022 HISTORY: h/o thoracic aneurysm CT DLP: 286.2 mGycm. Automated Exposure Control for Dose Reduction was Utilized. TECHNIQUE: CT scan of the thorax is performed without IV contrast. FINDINGS: LUNGS: The lungs are grossly clear, there is no concerning parenchymal mass or nodule identified. T here is no pleural effusion or pneumothorax seen. The tracheobronchial tree is patent. MEDIASTINUM: Lack of IV contrast is noted to limit evaluation for mediastinal and especially hilar ad enopathy. There are no definitive greater than 1 cm hilar or mediastinal lymph nodes. No cardiomega ly or pericardial effusion is seen. Ascending aortic aneurysm up to 4.1 cm axial image 31. Normal thr ee-vessel origin from the aortic arch. No aneurysmal extension into the descending aorta. OTHER: There is 2 mm nonobstructing calculus upper pole right kidney coronal image 54. IMPRESSION: Stable Ascending aortic aneurysm up to 4.1 cm on current study accounting for technical d ifferences.
== END | disposition home or self-care (01) ==
LOC: RADCTMAIN 11:39
PROVIDERS: ATTEND Surgery
DX: I71.21 Aneurysm of the ascending aorta, without rupture (principal)
CPT/HCPCS: 71250

== ENCOUNTER → 2023-08-23 | Outpatient (CLI) | payer OTHER ==
[2023-08-23 15:39] LABS: HGB 13.8 d/dL (13.0-17.0); MCH 29.3 pg (27.0-32.0); MCHC 32.9 d/dL (32.0-37.0); MCV 89.2 FL (80.0-97.0); Mean Platelet Volume 10.8 FL (9.5-12.2); NRBC Per 100 WBC 0 X 10*3/uL (0.00-0.01); Platelet Count 334 X 10*3/uL (140-440); RBC 4.71 X 10*6/uL (4.40-5.60); RDW 12.6 % (11.5-14.5); WBC 3.91 X 10*3/uL (4.50-10.00)
[2023-08-23 15:59] LABS: Chol/HDL Ratio 3.62 Ratio; LDL Cholesterol,Calculated 156.6 mg/dL (0.0-131.0)
== END | disposition home or self-care (01) ==
LOC: LABWHC1 08:44
PROVIDERS: ATTEND Family Medicine
DX: E78.2 Mixed hyperlipidemia (principal); D64.9 Anemia, unspecified
CPT/HCPCS: 36415; 80061; 85027

== ENCOUNTER → 2024-04-26 | Outpatient (CLI) | payer OTHER | END | disposition home or self-care (01) | LOC: LABWHC1 10:16 | PROVIDERS: ATTEND Urology | DX: C61 Malignant neoplasm of prostate (principal) | CPT/HCPCS: 36415; 84153 ==

== ENCOUNTER → 2024-05-01 | Outpatient (CLI) | payer OTHER ==
--- NOTE | 2024-05-02 01:00 | CT ---
EXAMINATION TYPE: CT chest wo con CT DLP: 221.9 mGycm, Automated exposure control for dose reduction was used. DATE OF EXAM: 05/01/2024 6:34 AM COMPARISON: CT chest 04/17/2023, 04/20/2022. CLINICAL INDICATION:Male, 64 years old with history of I71.20 THORACIC AORTIC ANEURYSM; PHH, thoracic aneurysm TECHNIQUE: Multiple axial images were obtained through the chest without IV contrast. Lack of IV or o ral contrast limits evaluation of solid and hollow organ viscera. . Coronal and sagittal reformats re viewed. FINDINGS: LUNGS/ PLEURA: Minimal biapical pleural-parenchymal scarring. No pleural effusion, pneumothorax, foca l consolidation. Minimal bibasilar dependent subsegmental atelectasis. No suspicious pulmonary nodul e or mass. AIRWAY: Patent and unremarkable.. HEART: Size within normal limits. No pericardial effusion. MEDIASTINUM: No gross evidence of adenopathy. VASCULATURE: Conventional 3 vessel origin from the aortic arch. Stable thoracic ascending aortic aneu rysm measuring up to 4.1 cm. No aneurysm extension into the descending aorta. No evidence for intramu ral hematoma. Minimal atherosclerotic calcification of the aorta and its branches. MUSCULOSKELETAL: Mild disc degeneration changes are present throughout the thoracolumbar spine. No ac peter osseous abnormality. SOFT TISSUES/LYMPH NODES: Mild bilateral gynecomastia. LOWER NECK: No significant findings. UPPER ABDOMEN: No significant findings. IMPRESSION: Stable ascending thoracic aortic aneurysm measuring up to 4.1 cm.
== END | disposition home or self-care (01) ==
LOC: RADCTMAIN 06:08
PROVIDERS: ATTEND Surgery
DX: I71.21 Aneurysm of the ascending aorta, without rupture (principal)
CPT/HCPCS: 71250

== ENCOUNTER 2024-07-27 18:36 | Observation (INO) | payer OTHER ==
--- NOTE | 2024-07-27 18:54 | ED ---
General Adult HPI - General Chief complaint: Chest Pain Stated complaint: Chest pain Time Seen by Provider: 07/27/24 18:45 Source: patient Mode of arrival: ambulatory Limitations: no limitations - History of Present Illness Initial comments: Patient presents to the ED complaining of having upper back pain radiating to his central chest intermittently over the past week or so. Patient states that he mainly notices these symptoms when he tries to go to sleep at night, and he reports that his symptoms improve during the day. Patient also states that he has noticed that his heart has been "fluttering" at times when his symptoms are present. Patient states that he drove back from [place] today and his pain returned, so he has come to the ED for evaluation. Patient states that his pain is mild and mainly in his back at this time. Patient denies known trauma or injury, fever or chills, headache, focal numbness/weakness/neuro bdeficit, neck/arm/jaw pain, pleuritic pain, dyspnea, cough or cold symptoms, dizziness, syncope, abdominal pain, nausea/vomiting, diarrhea, bloody or melanotic stool, dysuria or urinary symptoms, leg or calf swelling or pain, or any other symptoms or complaints. - Related Data Home Medications Medication Instructions Recorded Confirmed Losartan/Hydrochlorothiazide 1 tab PO DAILY 07/27/24 07/27/24 [Hyzaar 100-25 Tablet] amLODIPine [Norvasc] 5 mg PO DAILY 07/27/24 07/27/24 Allergies Allergy/AdvReac Type Severity Reaction Status Date / Time No Known Allergies Allergy Verified 07/27/24 19:50 Review of Systems ROS Statement: Those systems with pertinent positive or pertinent negative responses have been documented in the HPI. ROS Other: All systems not noted in ROS Statement are negative. Past Medical History Past Medical History: Cancer, Hypertension Additional Past Medical History / Comment(s): hx. prostate cancer, kidney stones History of Any Multi-Drug Resistant Organisms: None Reported Past Surgical History: Tonsillectomy Additional Past Surgical History / Comment(s): colonoscopy prostatectomy Past Anesthesia/Blood Transfusion Reactions: No Reported Reaction Past Psychological History: No Psychological Hx Reported Smoking Status: Never smoker Past Alcohol Use History: Occasional Past Drug Use History: None Reported - Past Family History Sister(s) Family Medical History: Cancer General Exam Limitations: no limitations General appearance: alert, in no apparent distress Head exam: Present: normocephalic ENT exam: Present: mucous membranes moist Neck exam: Present: other (Trachea is in midline) Respiratory exam: Present: normal lung sounds bilaterally. Absent: respiratory distress, wheezes, rales, rhonchi, stridor, chest wall tenderness Cardiovascular Exam: Present: regular rate, normal rhythm, normal heart sounds, other (Normal radial pulses bilaterally) GI/Abdominal exam: Present: soft. Absent: distended, tenderness, guarding Extremities exam: Present: full ROM, other (Negative Homans' sign bilaterally). Absent: tenderness, pedal edema, calf tenderness Back exam: Present: normal inspection. Absent: tenderness, CVA tenderness (R), CVA tenderness (L) Neurological exam: Present: alert, oriented X3. Absent: motor sensory deficit Skin exam: Present: warm, dry, normal color Course Vital Signs 07/27/24 07/27/24 18:37 20:17 Temperature 97.9 F Pulse Rate 100 74 Respiratory 20 18 Rate Blood Pressure 185/96 144/102 O2 Sat by Pulse 99 100 Oximetry - Reevaluation(s) Reevaluation #1: 07/27/24 20:23 Patient denies development of any new symptoms while in the ED. Patient remains alert and breathing comfortably. Patient and family are aware of the patient's test results, and patient agrees with hospital admission at this time for further evaluation of his chest pain/symptoms. 07/27/24 20:39 Case, H&P, test results and ED management were discussed with Dr. Pelayo. He accepts hospital admission. He has no further recommendations at this time. EKG Findings - EKG Comments: EKG Findings:: ED physician interpretation (interpreted by me): Normal sinus rhythm, ventricular rate of 75 bpm, no ectopy, normal IN and QRS intervals, normal QT interval, normal axis, inferior and lateral ST depressions, no significant change when compared to 03/14/2023 EKG Medical Decision Making - Medical Decision Making Was pt. sent in by a medical professional or institution (, PA, B[employer]ING [employer], urgent care, hospital, or usp...) When possible be specific @ -No Did you speak to anyone other than the patient for history (EMS, parent, family, police, friend...)? What history was obtained from this source @ -No Did you review nursing and triage notes (agree or disagree)? Why? @ -I reviewed and agree with nursing and triage notes Were old charts reviewed (outside hosp., previous admission, EMS record, old EKG, old radiological studies, urgent care reports/EKG's, usp records)? Report findings @ -No old charts were reviewed Differential Diagnosis (chest pain, altered mental status, abdominal pain women, abdominal pain men, vaginal bleeding, weakness, fever, dyspnea, syncope, headache, dizziness, GI bleed, back pain, seizure, CVA, palpatations, mental hea lth, musculoskeletal)? @ -Differential Chest Pain: Stable Angina, Unstable Angina, STEMI, NSTEMI, Aortic Dissection, Pneumothorax, Musculoskeletal, Esophageal Spasm, GERD, back pain, muscle strain, DDD, DJD, herniated disc disease, PE, this is not meant to be an all-inclusive list. EKG interpreted by me (3pts min.). @ -As above X-rays interpreted by me (1pt min.). @ -Chest x-ray was reviewed myself and shows no definite acute cardiopulmonary disease. I agree with the radiologist's interpretation as above. CT interpreted by me (1pt min.). @ -None done U/S interpreted by me (1pt. min.). @ -None done What testing was considered but not performed or refused? (CT, X-rays, U/S, labs)? Why? @ -None What meds were considered but not given or refused? Why? @ -None Did you discuss the management of the patient with other professionals (professionals i.e. DrNicky, PA, B[employer]ING M[employer]DER, lab, RT, psych nurse, social problems specialist, tapper supervisor, teacher, resident medical officer, outpatient case manager)? Give summary @ -As above. Was smoking cessation discussed for >3mins.? @ -No Was critical care preformed (if so, how long)? @ -No Were there social determinants of health that impacted care today? How? (Homelessness, low income, unemployed, alcoholism, drug addiction, transportation, low edu. Level, literacy, decrease access to med. care, prison, rehab)? @ -No Was there de-escalation of care discussed even if they declined (Discuss DNR or withdrawal of care, Hospice)? DNR status @ -No What co-morbidities impacted this encounter? (DM, HTN, Smoking, COPD, CAD, Cancer, CVA, ARF, Chemo, Hep., AIDS, mental health diagnosis, sleep apnea, morbid obesity)? @ -Hypertension Was patient admitted / discharged? Hospital course, mention meds given and route, prescriptions, significant lab abnormalities, going to OR and other pertinent info. @ -Patient's EKG demonstrates inferior and lateral ST depressions, but it is unchanged when compared to his EKG from 03/14/2023. Patient's chest x-ray is fairly unremarkable. Patient's D-dimer and troponin are negative. Patient's labs are otherwise fairly unremarkable. Patient has cardiac risk factor of hypertension. Given the patient's symptoms, abnormal EKG and risk factors, will admit the patient to the hospital for further evaluation, cardiac monitoring and serial troponins. Patient has been treated with a dose of aspirin in the ED. Patient and family are aware the patient's test results, and patient agrees with this plan. Dr. Pelayo has accepted hospital admission. Undiagnosed new problem with uncertain prognosis? @ -No Drug Therapy requiring intensive monitoring for toxicity (Heparin, Nitro, Insulin, Cardizem)? @ -No Were any procedures done? @ -No Diagnosis/symptom? @ -Chest/back pain Acute, or Chronic, or Acute on Chronic? @ -Acute Uncomplicated (without systemic symptoms) or Complicated (systemic symptoms)? @ -Default Side effects of treatment? @ -No Exacerbation, Progression, or Severe Exacerbation? @ -No Poses a threat to life or bodily function? How? (Chest pain, [place], [place], pneumonia, PE, COPD, DKA, ARF, appy, cholecystitis, CVA, Diverticulitis, Homicidal, Suicidal, threat to staff... and all critical care pts) @ -No - Lab Data Result diagrams: 07/27/24 19:03 07/27/24 19:03 Lab Results 07/27/24 07/27/24 07/27/24 Range/Units 19: 19: 19:03 WBC 5.6 (3.8-10.6) k/uL RBC 4.43 (4.30-5.90) m/uL Hgb 13.7 (13.0-17.5) gm/dL Hct 40.0 (39.0-53.0) % MCV 90.3 (80.0-100.0) fL MCH 31.0 (25.0-35.0) pg MCHC 34.3 (31.0-37.0) g/dL RDW 12.4 (11.5-15.5) % Plt Count 311 (150-450) k/uL MPV 7.1 Neutrophils % 73 % Lymphocytes % 19 % Monocytes % 5 % Eosinophils % 1 % Basophils % 1 % Neutrophils # 4.1 (1.3-7.7) k/uL Lymphocytes # 1.0 (1.0-4.8) k/uL Monocytes # 0.3 (0-1.0) k/uL Eosinophils # 0.1 (0-0.7) k/uL Basophils # 0.0 (0-0.2) k/uL PT 11.1 (10.0-12.5) sec INR 1.0 (<1.2) APTT 26.2 (22.0-30.0) sec D-Dimer <0.17 (<0.60) mg/L FEU Sodium 131 L (137-145) mmol/L Potassium 3.6 (3.5-5.1) mmol/L Chloride 93 L (98-107) mmol/L Carbon Dioxide 26 (22-30) mmol/L Anion Gap 12 mmol/L BUN 15 (9-20) mg/dL Creatinine 0.94 (0.66-1.25) mg/dL Est GFR (CKD-EPI)AfAm >90 (>60 ml/min/1.73 sqM) Est GFR (CKD-EPI)NonAf 87 (>60 ml/min/1.73 sqM) Glucose 107 H (74-99) mg/dL Calcium 10.5 H (8.4-10.2) mg/dL Magnesium 1.6 (1.6-2.3) mg/dL Total Bilirubin 1.9 H (0.2-1.3) mg/dL AST 44 (17-59) U/L ALT 34 (4-49) U/L Alkaline Phosphatase 63 (38-126) U/L Troponin I (0.000-0.034) ng/mL NT-Pro-B Natriuret Pep 55 pg/mL Total Protein 8.3 H (6.3-8.2) g/dL Albumin 5.3 H (3.5-5.0) g/dL 07/27/24 Range/Units 19:03 WBC (3.8-10.6) k/uL RBC (4.30-5.90) m/uL Hgb (13.0-17.5) gm/dL Hct (39.0-53.0) % MCV (80.0-100.0) fL MCH (25.0-35.0) pg MCHC (31.0-37.0) g/dL RDW (11.5-15.5) % Plt Count (150-450) k/uL MPV Neutrophils % % Lymphocytes % % Monocytes % % Eosinophils % % Basophils % % Neutrophils # (1.3-7.7) k/uL Lymphocytes # (1.0-4.8) k/uL Monocytes # (0-1.0) k/uL Eosinophils # (0-0.7) k/uL Basophils # (0-0.2) k/uL PT (10.0-12.5) sec INR (<1.2) APTT (22.0-30.0) sec D-Dimer (<0.60) mg/L FEU Sodium (137-145) mmol/L Potassium (3.5-5.1) mmol/L Chloride (98-107) mmol/L Carbon Dioxide (22-30) mmol/L Anion Gap mmol/L BUN (9-20) mg/dL Creatinine (0.66-1.25) mg/dL Est GFR (CKD-EPI)AfAm (>60 ml/min/1.73 sqM) Est GFR (CKD-EPI)NonAf (>60 ml/min/1.73 sqM) Glucose (74-99) mg/dL Calcium (8.4-10.2) mg/dL Magnesium (1.6-2.3) mg/dL Total Bilirubin (0.2-1.3) mg/dL AST (17-59) U/L ALT (4-49) U/L Alkaline Phosphatase (38-126) U/L Troponin I <0.012 (0.000-0.034) ng/mL NT-Pro-B Natriuret Pep pg/mL Total Protein (6.3-8.2) g/dL Albumin (3.5-5.0) g/dL - Radiology Data Chest x-ray: 1. Hyperinflation may relate to depth of inspiration or underlying emphysema. Clinically correlate. Otherwise, no acute cardiopulmonary process. 2. DISH midthoracic spine. Disposition Clinical Impression: Back pain, Chest pain Disposition: ADMITTED IP TO THIS HOSP Condition: Stable Is patient prescribed a controlled substance at d/c from ED?: No Referrals: Han Garcia MD [Primary Care Provider] - 1-2 days Time of Disposition: 20:39
[2024-07-27 19:20] LABS: Basophils % (A) 1 %; Eosinophils # (A) 0.1 k/uL (0-0.7); Eosinophils % (A) 1 %; HGB 13.7 gm/dL (13.0-17.5); Lymphocytes % (A) 19 %; MCHC 34.3 g/dL (31.0-37.0); MCV 90.3 fL (80.0-100.0); Mean Platelet Volume 7.1; Monocytes # (A) 0.3 k/uL (0-1.0); Monocytes % (A) 5 %; Neutrophils # (A) 4.1 k/uL (1.3-7.7); Neutrophils % (A) 73 %; Platelet Count 311 k/uL (150-450); RBC 4.43 m/uL (4.30-5.90); RDW 12.4 % (11.5-15.5); WBC 5.6 k/uL (3.8-10.6)
[2024-07-27 19:32] LABS: ALT 34 U/L (4-49); AST 44 U/L (17-59); African American GFR (CKD) >90 (>60 ml/min/1.73 sqM); Albumin 5.3 g/dL (3.5-5.0); Alkaline Phosphatase 63 U/L (38-126); Anion Gap 12 mmol/L; Blood Urea Nitrogen 15 mg/dL (9-20); Calcium 10.5 mg/dL (8.4-10.2); Carbon Dioxide 26 mmol/L (22-30); Chloride 93 mmol/L (98-107); Glucose 107 mg/dL (74-99); Magnesium 1.6 mg/dL (1.6-2.3); Non-African American GFR(CKD) 87 (>60 ml/min/1.73 sqM); Potassium 3.6 mmol/L (3.5-5.1); Sodium 131 mmol/L (137-145); Total Bilirubin 1.9 mg/dL (0.2-1.3); Total Protein 8.3 g/dL (6.3-8.2)
[2024-07-27 19:33] LABS: Partial Thromboplastin Time 26.2 sec (22.0-30.0); Prothrombin Time 11.1 sec (10.0-12.5)
[2024-07-27 19:40] LABS: NT-Pro-B-Type Natriuretic Pept 55 pg/mL
--- NOTE | 2024-07-27 19:55 | XR ---
EXAMINATION TYPE: XR chest 2V DATE OF EXAM: 07/27/2024 COMPARISON: 03/14/2023 HISTORY: 64-year-old male with chest pain TECHNIQUE: PA and lateral views FINDINGS: Heart normal size. Aorta and pulmonary vasculature within normal limits. Hyperinflation without conso lidation or pleural effusion. [facility] mid thoracic spine. IMPRESSION: 1. Hyperinflation may relate to depth of inspiration or underlying emphysema. Clinically correlate. O therwise, no acute cardiopulmonary process. 2. DISH midthoracic spine. [facility], , 07/27/2024 7:53 PM
[2024-07-27] MEDS: ASPIRIN 325 MG TAB PO STA (20:37)
[2024-07-27] MEDS ORDERED: NALOXONE 0.4 MG/ML 1 ML VIAL IV PRN (20:39)
[2024-07-27] MEDS: MAG HYDROX/AL HYDROX/SIMETH 30 ML, HYOSCYAMINE ELIXIR 10 ML, LIDOCAINE VISCOUS 2% 10 ML PO STA (20:45)
--- NOTE | 2024-07-28 | P.HPIM ---
History of Present Illness H&P Date: 07/27/24 Chief Complaint: Chest pain Patient is a 64-year-old male with hypertension presents to the ED with intermittent chest pain and upper back pain. Patient states the pain started approximately 1 week ago. He says that he notices the symptoms when he tries to go to sleep and states the pain typically improves throughout the day. He drove back from [place] today, and noticed the pain which prompted him to come to the ED. He describes having a sharp upper back pain that radiates to the chest. He also describes his chest pain as a burning sensation. Aggravating factors are laying down supine. Relieving factors are sitting upwards and inhalation. He tried Tylenol but that did not help with this pain. Denies increased pain on exertion, or pain on chest palpation. Patient admits to heart palpitations and feeling bloated. Patient denies fever, chills, headache, shortness of breath, cough, nausea, vomiting, abdominal pain, trauma, urinary systems, calf swelling or pain. Patient denies any cardiac history denies any history of arrhythmia Review of systems: Pertinent positives and negatives as discussed in HPI, a complete review of systems was performed and all other systems are negative. Social history: Tobacco: Never smoker Alcohol: Occasional Recreational drugs: Denies illicit drug use Travel: Drove back from [place] within the past day Physical examination: Vitals: T 97.9 F, NV 64, RR 18, BP 144/98, O2 sat 98% on room air General: non toxic, no distress, appears at stated age, normal weight Derm: no unusual rashes/lesions, warm Head: atraumatic, normocephalic, symmetric Eyes: EOMI, anicteric sclera, pupils equal round reactive to light ENT: Nose and ears atraumatic Mouth: no lip lesion, mucus membranes moist Cardiovascular: S1S2 irreqular, no murmur, positive dorsalis pedis pulse bilateral, no edema Lungs: CTA bilateral, no rhonchi, no rales, no accessory muscle use Abdominal: soft, nontender to palpation, no guarding Ext: muscle strength 5 out of 5 in all 4 extremities grossly, no gross muscle atrophy Neuro: CN II-XI grossly intact, no gross focal neuro deficits Psych: Alert, oriented to person, place, time Assessment/Plan: Patient is a 64-year-old male with hypertension presents to the ED with chest pain. ED documentation reviewed and case discussed with ED provider. Discussed with patient. The patient is admitted with an anticipated less than 2 midnight stay for evaluation of chest pain. Anticipated discharge place home. #. Chest pain Suspected new onset A-fib Heart score: 1 point risk of MACE of 0.9-1.7% EKG independently interpreted shows sinus rhythm with diffuse ST depression inferior lateral, rate 75 bpm QTc 397 ms CXR independently interpreted shows no acute cardiopulmonary process Troponin < 0.012 => < 0.012, continue to trend troponin proBNP 55 D-dimer < 0.17, PE unlikely Was given Maalox 30 mL once by ED Was given aspirin 325 mg PO once by ED, continue with daily aspirin 81 mg Heart healthy diet Order echocardiogram Ordered TSH, lipid panel Cardiac monitoring Consult cardiology Sublingual nitro as needed #. Hyponatremia Mild hypercalcemia with calcium of 10.5 Sodium 131 Patient euvolemic, asymptomatic Repeat CMP Normal saline 75 cc/h #. Hypertension Continue with Norvasc 5 mg p.o. daily Continue with losartan/hydrochlorothiazide 45153 1 tablet p.o. daily #. Elevated bilirubin Total bilirubin 1.9 Continue to monitor with CMP F: N/A E: Replete electrolytes as needed N: Heart healthy diet A: Ambulatory Rest of blood work unremarkable with hemoglobin of 13.7 white count 5.6 BUN 15 creatinine 0.9 unremarkable DVT prophylaxis: Lovenox 40 SQ daily CODE STATUS: Full Past Medical History Past Medical History: Cancer, Hypertension Additional Past Medical History / Comment(s): hx. prostate cancer, kidney stones History of Any Multi-Drug Resistant Organisms: None Reported Past Surgical History: Tonsillectomy Additional Past Surgical History / Comment(s): colonoscopy prostatectomy Past Anesthesia/Blood Transfusion Reactions: No Reported Reaction Past Psychological History: No Psychological Hx Reported Smoking Status: Never smoker Past Alcohol Use History: Occasional Past Drug Use History: None Reported - Past Family History Sister(s) Family Medical History: Cancer Medications and Allergies Home Medications Medication Instructions Recorded Confirmed Type Losartan/Hydrochlorothiazide 1 tab PO DAILY 07/27/24 07/27/24 History [Hyzaar 100-25 Tablet] amLODIPine [Norvasc] 5 mg PO DAILY 07/27/24 07/27/24 History Allergies Allergy/AdvReac Type Severity Reaction Status Date / Time No Known Allergies Allergy Verified 07/27/24 19:50 Physical Exam Vitals: Vital Signs Temp Pulse Resp BP Pulse Ox 07/27/24 21:42 64 18 144/98 98 07/27/24 20:17 74 18 144/102 100 07/27/24 18:37 97.9 F 100 20 185/96 99 Intake and Output 07/27/24 07/27/24 07/27/24 06:59 14:59 22:59 Other: Weight 79.379 kg Results CBC & Chem 7: 07/27/24 19:03 07/27/24 19:03 Labs: Abnormal Lab Results - Last 24 Hours (Table) 07/27/24 Range/Units 19:03 Sodium 131 L (137-145) mmol/L Chloride 93 L (98-107) mmol/L Glucose 107 H (74-99) mg/dL Calcium 10.5 H (8.4-10.2) mg/dL Total Bilirubin 1.9 H (0.2-1.3) mg/dL Total Protein 8.3 H (6.3-8.2) g/dL Albumin 5.3 H (3.5-5.0) g/dL Assessment and Plan Assessment: I have seen and evaluated the patient today. I Discussed the case with the resident and agree with the resident's findings I edited the assessment and plan as necessary as documented in the resident's note.
[2024-07-28] MEDS: NITROGLYCERIN SL TABS 0.4 MG TAB SUBLINGUAL PRN (00:27)
[2024-07-28] MEDS: SODIUM CHLORIDE 0.9% 1,000 ML IV SCH (00:37)
[2024-07-28] MEDS: MORPHINE SULFATE 4 MG/ML SYRINGE IVP STA (00:56)
--- NOTE | 2024-07-28 02:52 | CT ---
1317 images EXAM: CT Chest With Intravenous Contrast CLINICAL HISTORY: rule out dissection TECHNIQUE: Axial computed tomography images of the chest with intravenous contrast. CTDI is 204.3 mGy and DLP is 1040.9 mGy-cm. This CT exam was performed using one or more of the following dose reduction techniques: automated exposure control, adjustment of the mA and/or kV according to patient size, and/or use of iterative reconstruction technique. Coronal and sagittal reformatted images were created and reviewed. COMPARISON: No relevant prior studies available. FINDINGS: Lungs: Small amount of peripheral atelectasis in both lungs. No mass. Pleural space: Unremarkable. No pneumothorax. No significant effusion. Heart: Unremarkable. No cardiomegaly. No significant pericardial effusion. No significant coronary artery calcifications. Bones/joints: Mild to moderate degenerative changes. DISH. Soft tissues: Unremarkable. Vasculature: Unremarkable. No thoracic aortic aneurysm. Lymph nodes: Unremarkable. No enlarged lymph nodes. IMPRESSION: No acute findings in the chest. Normal thoracic aorta. No pulmonary embolism EXAM: CT Abdomen and Pelvis With Intravenous Contrast CLINICAL HISTORY: ITS.REASON CT Reason: rule out dissection TECHNIQUE: Axial computed tomography images of the abdomen and pelvis with intravenous contrast. CTDI is 204.3 mGy and DLP is 1040.9 mGy-cm. This CT exam was performed using one or more of the following dose reduction techniques: automated exposure control, adjustment of the mA and/or kV according to patient size, and/or use of iterative reconstruction technique. Coronal and sagittal reformatted images were created and reviewed. COMPARISON: No relevant prior studies available. FINDINGS: Lung bases: Unremarkable. No mass. No consolidation. ABDOMEN: Liver: Unremarkable. No mass. Gallbladder and bile ducts: Unremarkable. No calcified stones. No ductal dilation. Pancreas: Unremarkable. No mass. No ductal dilation. Spleen: Unremarkable. No splenomegaly. Adrenals: Unremarkable. No mass. Kidneys and ureters: Small nonobstructing renal stones, more numerous and larger in left kidney measuring up to 3 x 6 mm. Stomach and bowel: Unremarkable. No obstruction. No mucosal thickening. PELVIS: Appendix: Normal appendix. Bladder: Unremarkable. No mass. Reproductive: Unremarkable as visualized. ABDOMEN and PELVIS: Intraperitoneal space: Unremarkable. No free air. No significant fluid collection. Bones/joints: Mild to moderate degenerative changes. Each kidney has several small cysts. The largest is on the left measures about 17 mm. Soft tissues: Unremarkable. Vasculature: Unremarkable. No abdominal aortic aneurysm. Lymph nodes: Unremarkable. No enlarged lymph nodes. IMPRESSION: No acute findings. No aortic aneurysms or dissection.
[2024-07-28] MEDS: ASPIRIN 81 MG PO SCH (08:15)
[2024-07-28] MEDS: ENOXAPARIN 40 MG/0.4 ML SYRINGE SQ SCH (08:16)
[2024-07-28] MEDS: LOSARTAN-HCTZ 50-12.5 MG 1 EACH TAB PO SCH (08:16)
[2024-07-28] MEDS: amLODIPine 5 MG TAB PO SCH (08:16)
[2024-07-28 09:37] LABS: ALT 31 U/L (10-49); AST 32 U/L (14-35); Albumin 4.8 g/dL (3.8-4.9); Albumin/Globulin Ratio 2.09 Ratio (1.60-3.17); Alkaline Phosphatase 66 U/L (41-126); BUN/Creat Ratio 11.36 Ratio (12.00-20.00); Blood Urea Nitrogen 12.5 mg/dL (9.0-27.0); Calcium 9.6 mg/dL (8.7-10.3); Carbon Dioxide 26.8 mmol/L (21.6-31.8); Chloride 93 mmol/L (96-109); Chol/HDL Ratio 3.24 Ratio; Globulin 2.3 g/dL (1.6-3.3); Glucose 100 mg/dL (70-110); LDL Cholesterol,Calculated 123.4 mg/dL (0.0-131.0); Potassium 3.7 mmol/L (3.5-5.5); Sodium 131 mmol/L (135-145); Total Bilirubin 1.1 mg/dL (0.3-1.2); Total Protein 7.1 g/dL (6.2-8.2)
[2024-07-28 09:47] LABS: Basophils # (A) 0.03 X 10*3/uL (0.00-0.10); Basophils % (A) 0.6 %; Eosinophils % (A) 2.1 %; HCT 37.7 % (39.6-50.0); HGB 13.1 g/dL (13.0-17.0); Lymphocytes # (A) 1.79 X 10*3/uL (0.90-5.00); Lymphocytes % (A) 37.2 %; MCH 30.5 pg (27.0-32.0); MCHC 34.7 g/dL (32.0-37.0); MCV 87.9 FL (80.0-97.0); Mean Platelet Volume 10.1 FL (9.5-12.2); Monocytes # (A) 0.46 X 10*3/uL (0.20-1.00); Monocytes % (A) 9.6 %; NRBC Per 100 WBC 0 X 10*3/uL (0.00-0.01); Neutrophils # (A) 2.41 X 10*3/uL (1.80-7.70); Neutrophils % (A) 50.1 %; Platelet Count 253 X 10*3/uL (140-440); RBC 4.29 X 10*6/uL (4.40-5.60); RDW 12.4 % (11.5-14.5); WBC 4.81 X 10*3/uL (4.50-10.00)
--- NOTE | 2024-07-28 11:58 | P.CRDCN ---
History of Present Illness Consult date: 07/28/24 History of present illness: The patient is a 65-year-old gentleman with a past medical history significant for hypertension presented to the hospital complaining of chest discomfort and upper back discomfort. He was driving home when she started experiencing discomfort in the middle of the chest as a dull feeling with no radiation to the arms or neck or shoulders but was radiating to his back. No associated symptoms of shortness of breath or sweating or dizziness or lightheadedness or any feeling of heart racing or fluttering or presyncope or syncope or edema in the lower extremities. He underwent further evaluation including an EKG showing sinus mechanism with mild ST and T wave abnormalities. Troponin with 3 sets came in to be unremarkable with the chest x-ray did not show any acute abnormalities. He underwent also a CT scan of the chest which did not show any acute abnormalities. The patient does not have any diabetes or dyslipidemia or coronary artery disease or congestive heart failure. He does have hypertension and he stated that his pressure has been under good control at home. The physical examination is remarkable for regular rhythm with a systolic murmur at the apical area and clear breathing sounds bilaterally and no carotid bruit and no edema was noted. Also the examination of the back did not reveal any rash. Assessment Chest discomfort Hypertension Heart murmur on examination Plan Acute coronary event was ruled out Obtain a stress test and echocardiogram Follow-up with the patient Past Medical History Past Medical History: Cancer, Hypertension Additional Past Medical History / Comment(s): hx. prostate cancer, kidney stones History of Any Multi-Drug Resistant Organisms: None Reported Past Surgical History: Tonsillectomy Additional Past Surgical History / Comment(s): colonoscopy prostatectomy Past Anesthesia/Blood Transfusion Reactions: No Reported Reaction Past Psychological History: No Psychological Hx Reported Smoking Status: Never smoker Past Alcohol Use History: Occasional Past Drug Use History: None Reported - Past Family History Sister(s) Family Medical History: Cancer Medications and Allergies Home Medications Medication Instructions Recorded Confirmed Type Losartan/Hydrochlorothiazide 1 tab PO DAILY 07/27/24 07/27/24 History [Hyzaar 100-25 Tablet] amLODIPine [Norvasc] 5 mg PO DAILY 07/27/24 07/27/24 History Allergies Allergy/AdvReac Type Severity Reaction Status Date / Time No Known Allergies Allergy Verified 07/27/24 19:50 Physical Exam Vitals: Vital Signs Temp Pulse Pulse Resp BP BP Pulse Ox 07/28/24 07:00 97.7 F 55 L 13 122/79 100 07/28/24 02:38 97.7 F 59 L 16 116/71 99 07/28/24 02:00 65 27 H 07/28/24 00:32 63 19 134/84 99 07/28/24 00:09 97.7 F 65 19 165/94 100 07/27/24 23:48 70 16 151/111 99 07/27/24 21:42 64 18 144/98 98 07/27/24 20:17 74 18 144/102 100 07/27/24 18:37 97.9 F 100 20 185/96 99 Intake and Output 07/27/24 07/28/24 07/28/24 22:59 06:59 14:59 Intake Total 930 0 Balance 930 0 Intake: Intake, IV Titration 450 Amount Sodium Chloride 0.9% 1, 450 000 ml @ 75 mls/hr IV . [id number] [facility] Rx#:[id number] Oral 480 0 Other: Voiding Method Toilet # Voids 2 Weight 79.379 kg 79.379 kg Results 07/28/24 03:01 07/28/24 03:01 Cardiac Enzymes 07/27/24 07/27/24 07/27/24 Range/Units 19:03 19:03 21:22 AST 44 (17-59) U/L Troponin I <0.012 <0.012 (0.000-0.034) ng/mL 07/28/24 07/28/24 Range/Units 00:41 03:01 AST 32 (17-59) U/L Troponin I <0.012 (0.000-0.034) ng/mL Coagulation 07/27/24 Range/Units 19:03 PT 11.1 (10.0-12.5) sec APTT 26.2 (22.0-30.0) sec Lipids 07/28/24 Range/Units 03:01 Triglycerides 105.00 (0.00-149.00) mg/dL Cholesterol 209.00 H (0.00-200.00) mg/dL HDL Cholesterol 64.60 H (40.00-60.00) mg/dL Cholesterol/HDL Ratio 3.24 Ratio CBC 07/27/24 07/28/24 Range/Units 19:03 03:01 WBC 5.6 4.81 (3.8-10.6) k/uL RBC 4.43 4.29 L (4.30-5.90) m/uL Hgb 13.7 13.1 (13.0-17.5) gm/dL Hct 40.0 37.7 L (39.0-53.0) % Plt Count 311 253 (150-450) k/uL Comprehensive Metabolic Panel 07/27/24 07/28/24 Range/Units 19:03 03:01 Sodium 131 L 131 L (137-145) mmol/L Potassium 3.6 3.7 (3.5-5.1) mmol/L Chloride 93 L 93 L (98-107) mmol/L Carbon Dioxide 26 26.8 (22-30) mmol/L BUN 15 12.5 (9-20) mg/dL Creatinine 0.94 1.1 (0.66-1.25) mg/dL Glucose 107 H 100 (74-99) mg/dL Calcium 10.5 H 9.6 (8.4-10.2) mg/dL AST 44 32 (17-59) U/L ALT 34 31 (4-49) U/L Alkaline Phosphatase 63 66 (38-126) U/L Total Protein 8.3 H 7.1 (6.3-8.2) g/dL Albumin 5.3 H 4.8 (3.5-5.0) g/dL Current Medications Generic Name Dose Route Start Last Admin Trade Name Freq PRN Reason Stop Dose Admin Amlodipine Besylate 5 mg 07/28/24 09:00 07/28/24 08:16 Amlodipine 5 Mg Tab PO 5 mg DAILY TROY Administration Aspirin 81 mg 07/28/24 09:00 07/28/24 08:15 Aspirin 81 Mg PO 81 mg DAILY TROY Administration Enoxaparin Sodium 40 mg 07/28/24 09:00 07/28/24 08:16 Enoxaparin 40 Mg/0.4 Ml Syringe SQ 40 mg DAILY TROY Administration HCTZ/Losartan Potassium 2 each 07/28/24 09:00 07/28/24 08:16 Losartan-Hctz 50-12.5 Mg 1 Each Tab PO 2 each DAILY TROY Administration Sodium Chloride 1,000 mls @ 75 mls/hr 07/28/24 00:30 07/28/24 00:37 Saline 0.9% IV 75 mls/hr .[id number] [facility] Administration Naloxone HCl 0.2 mg 07/27/24 20:39 Naloxone 0.4 Mg/Ml 1 Ml Vial IV Q2M PRN Opioid Reversal Nitroglycerin 0.4 mg 07/28/24 00:17 07/28/24 00:27 Nitroglycerin Sl Tabs 0.4 Mg Tab SUBLINGUAL 0.4 mg Q5M PRN Administration Chest Pain Intake and Output 07/27/24 07/28/24 07/28/24 22:59 06:59 14:59 Intake Total 930 0 Balance 930 0 Intake: Intake, IV Titration 450 Amount Sodium Chloride 0.9% 1, 450 000 ml @ 75 mls/hr IV . [id number] [facility] Rx#:[id number] Oral 480 0 Other: Voiding Method Toilet # Voids 2 Weight 79.379 kg 79.379 kg 07/28/24 03:01 07/28/24 03:01
--- NOTE | 2024-07-28 14:16 | P.PN ---
Subjective Progress Note Date: 07/28/24 Hospital Course: 64-year-old male with history of hypertension and chronic back pain presenting with chest pressure. On initial presentation, patient was hypertensive, laboratory workup unremarkable except for sodium of 131, troponin negative x 3. EKG showed some nonspecific ST-T wave changes. CT chest abdomen pelvis did not show any PE or any acute process. Cardiology consulted. Subjective: Seen and examined at bedside. No acute events overnight. Denies any further chest pressure. Still having some back pain. Pertinent positives and negatives as discussed above, a complete review of systems was performed and all other systems are negative. Vitals Signs Reviewed. General: Nontoxic, no distress, appears at stated age Derm: Warm, dry Head: Atraumatic, normocephalic, symmetric Eyes: EOMI, no lid lag, anicteric sclera Mouth: No lip lesion, mucus membranes moist Cardiovascular: S1S2 reg, no murmur Lungs: CTA bilateral, no rhonchi, no rales, no accessory muscle use Abdominal: Soft, nontender to palpation, no guarding, no appreciable organomegaly Ext: No gross muscle atrophy, no edema, no contractures Neuro: CN II-XI grossly intact, no focal neuro deficits Psych: Alert, oriented, appropriate affect Data Reviewed Today: Pertinent Labs: WBC 4.81, hemoglobin 13.1, sodium 131, creatinine 1.1, total cholesterol 209, LDL 123 Imaging: No new imaging Assessment and Plan: Active: Chest pain, ACS ruled out Dyslipidemia -Cardiology note reviewed, pending stress test and echocardiogram -Continue aspirin 81 mg -High ASCVD score, started on atorvastatin 40 mg daily -Continue telemetry monitoring Hypertension -Continue home losartan-hydrochlorothiazide 50-12.5 daily -Continue amlodipine 5 mg daily Hyponatremia, euvolemic -Continue to monitor Hypercalcemia, resolved DVT ppx: Lovenox Code status: Full code Anticipated discharge place: Home Anticipated discharge time: Likely tomorrow Objective - Vital Signs Vital signs: Vital Signs Temp 97.7 F 07/28/24 07:00 Pulse 55 L 07/28/24 07:00 Resp 13 07/28/24 07:00 BP 122/79 07/28/24 07:00 Pulse Ox 100 07/28/24 07:00 FiO2 Intake & Output 07/27/24 07/28/24 07/28/24 18:59 06:59 18:59 Intake Total 930 0 Balance 930 0 Weight 79.379 kg 79.379 kg Intake: Intake, IV Titration 450 Amount Sodium Chloride 0.9% 1, 450 000 ml @ 75 mls/hr IV . [id number] [facility] Rx#:[id number] Oral 480 0 Other: Voiding Method Toilet # Voids 2 - Labs CBC & Chem 7: 07/28/24 03:01 07/28/24 03:01 Labs: Abnormal Lab Results - Last 24 Hours (Table) 07/27/24 07/28/24 07/28/24 Range/Units 19:03 03:01 03:01 RBC 4.29 L (4.40-5.60) X 10*6/uL Hct 37.7 L (39.6-50.0) % Sodium 131 L 131 L (137-145) mmol/L Chloride 93 L 93 L (98-107) mmol/L BUN/Creatinine Ratio 11.36 L (12.00-20.00) Ratio Glucose 107 H (74-99) mg/dL Calcium 10.5 H (8.4-10.2) mg/dL Total Bilirubin 1.9 H (0.2-1.3) mg/dL Total Protein 8.3 H (6.3-8.2) g/dL Albumin 5.3 H (3.5-5.0) g/dL Cholesterol 209.00 H (0.00-200.00) mg/dL HDL Cholesterol 64.60 H (40.00-60.00) mg/dL TSH 6.400 H (0.350-5.500) UIU/ML
[2024-07-28] MEDS: ATORVASTATIN 40 MG TAB PO SCH (14:35)
[2024-07-29 09:04] LABS: BUN/Creat Ratio 15.29 Ratio (12.00-20.00); Blood Urea Nitrogen 21.4 mg/dL (9.0-27.0); Calcium 9.7 mg/dL (8.7-10.3); Carbon Dioxide 27.6 mmol/L (21.6-31.8); Chloride 98 mmol/L (96-109); Glucose 102 mg/dL (70-110); Potassium 4.5 mmol/L (3.5-5.5); Sodium 137 mmol/L (135-145)
--- NOTE | 2024-07-29 14:26 | CA ---
Stress Echo Report Freddy Sylvester Age: 64 Gender: M : 1960 Exam Date: 07/29/2024 09:45 Exam Location: [facility] Ht (in): 70 Wt (lb): 175 Ordering Physician: Brad Campuzano MD ([id number]) Referring Physician: DEBORAH Map Editor: AG[employer] Technologist Procedure CPT: Indication: Chest Pain ICD-9 Codes: Rhythm: Patient History: Chest tightness and palpitations Cardiac Medications: Medications in past 24 hours: Contrast: Stress Results Protocol: Paul Total dose(mL): Exercise Duration (min:sec): 11:[address] Depression (mm): Angina Score: Chavez Score: METS: 12.1 Resting HR: 55 Resting BP: 116 / 71 Peak HR: 157 Peak BP: 201 / 73 Max Predicted HR: 158 99 % Max Predicted HR Target HR: 134 Double Product: [id number] Stress Summary: BP Response: Reason for Termination: Reached target heart rate or work-load Cardiac Symptoms: No symptoms ECG Analysis Resting ECG: Stress ECG: Arrhythmia: Echo Analysis Resting Echo: Peak Echo Analysis: MEASUREMENTS (Male/Female) Normal Values CONCLUSIONS Diagnosis: Recurrent chest discomfort, hypertension, abnormal EKG, atherosclerosis of the aorta and carotids Exercise stress echo shows excellent exercise capacity no ECG or echocardiographic evidence for ischemia Dr. Karson Jaime MD (Electronically Signed) Final Date: 29 July 2024 14:26
--- NOTE | 2024-07-29 14:50 | P.DS ---
Providers Date of admission: 07/27/24 20:39 Expected date of discharge: 07/29/24 Attending physician: Yulia Pelayo MD Consults: 07/28/24 08:35 Consult Physician Routine Consulting Provider: Brad Campuzano Consult Reason/Comments: Chest pain Do you want consulting provider notified?: Yes Primary care physician: [facility] Course: Discharge Diagnosis: Chest pain, ACS ruled out. Dyslipidemia. Patient discharged home on atorvastatin 20 mg daily. Hypertension. Continue home losartan-hydrochlorothiazide 50-12.5 daily and amlodopine 5 mg daily. Hyponatremia, euvolemic. Resolved Hypercalcemia. Resolved with IV fluid hydration. Hospital Course: Patient is a 64-year-old male with history of hypertension and chronic back pain. He presented to the emergency department on 07/27/2024 with a chief complaint of chest pressure. Upon arrival to our facility, patient underwent evaluation in the emergency department. Vital signs upon arrival show blood pressure 185/96, heart rate 100, respiratory rate 20, temp 97.9 F, and SpO2 of 99% on room air. EKG was completed showing sinus mechanism at [address] depression in inferior leads II, III, and aVF. Chest x-ray showing hyperinflation and DISH of the mid thoracic spine otherwise negative for acute cardiopulmonary process. CTA chest abdomen and pelvis was completed negative for acute process showing no aortic aneurysms or dissection and no signs of PE. Labs were completed and reviewed. CBC, coagulation profile and D-dimer were unremarkable. BMP showing mild hyponatremia with sodium of 131 and hypochloremia with chloride of 93 otherwise normal findings. Glucose was slightly elevated at 107 and calcium was slightly elevated at 10.5. Magnesium was low at 1.6. Liver profile showing elevated total bili of 1.9 otherwise normal findings. Troponin was negative at less than 0.012 and proBNP was 55. Patient was admitted under services with consultation to cardiology. Troponins were trended overnight all negative at less than 0.012 x 3 draws. Lipid profile showing elevated total cholesterol of 209 and VLDL of 64.60. Patient underwent cardiac stress echo which reportedly showed excellent exercise capacity with no ECG or echocardiographic evidence for ischemia. Echocardiogram was also completed and pending final report. Cardiology clearing patient from their perspective recommending patient follow-up outpatient in their office for full echocardiogram report and follow-up visit in 1 to 2 weeks. Patient is currently free from any chest pain/pressure or any other complaints. He was resting comfortably in bed with family visiting at bedside medically stable for discharge at this time. Physical exam: Vital signs reviewed and stable. General: Nontoxic, no distress and appears stated age. Derm: Skin warm and dry, normal coloration for ethnicity. Head: Atraumatic, normocephalic and symmetric. Eyes: EOM's intact, no lid lag, and anicteric sclera Mouth: no lip lesions, mucus membranes moist Cardiovascular: regular rate and rhythm with normal S1S2, no murmur, positive posterior tibial pulses bilaterally, and cap refill < 2 seconds. Lungs: Respirations even, regular, and unlabored on room air. Lungs CTA bilaterally, no rhonchi, no rales, no wheezing, and no accessory muscle usage. Abdominal: soft, nontender to palpation, no guarding, no appreciable organomegaly Ext: ROM intact. No gross muscle atrophy, no edema, no contractures Neuro: Speech clear, face symmetrical and CN II-XII grossly intact with no noted focal neuro deficits Psych: Alert and oriented to person, place, time, and situation. Appropriate and pleasant affect. A total of 34 minutes of time were spent preparing this complex discharge summary. Pt was discharged on 07/29/2024 at 2:48 PM. Patient was seen independently by Nurse Practitioner. This document was prepared using [employer] dictation software. Please allow for errors in urinalysis technician while rare they do occur. Joaquim Sarabia NP rendered care for this patient independently, reviewed the findings and plan as documented in the note above. I did not physically speak with or examine the patient on this date. Patient Condition at Discharge: Stable Plan - Discharge Summary Discharge Rx Participant: No New Discharge Prescriptions: New Atorvastatin [Lipitor] 20 mg PO DAILY #90 tablet Continue Losartan/Hydrochlorothiazide [Hyzaar 100-25 Tablet] 1 tab PO DAILY amLODIPine [Norvasc] 5 mg PO DAILY Discharge Medication List Losartan/Hydrochlorothiazide [Hyzaar 100-25 Tablet] 1 tab PO DAILY 07/27/24 [History] amLODIPine [Norvasc] 5 mg PO DAILY 07/27/24 [History] Atorvastatin [Lipitor] 20 mg PO DAILY #90 tablet 07/29/24 [Rx] Follow up Appointment(s)/Referral(s): Han Garcia MD [Primary Care Provider] - 1-2 days Brad Campuzano MD [STAFF PHYSICIAN] - 1 Week (Office will call patient with appointment ) Patient Instructions/Handouts: Chest Pain (DC), Stress Echocardiogram (DC) Activity/Diet/Wound Care/Special Instructions: Activity: As tolerated. Take breaks as needed. Diet: Heart healthy and carb consistent diet. Avoid salts, or foods with hidden salts such as canned or boxed foods and frozen dinners. Extra salt makes your heart work harder and traps the fluid in your body for longer. Special Instructions: Take all of your medications as directed and remember to keep all of your doctor's appointments and follow-up as needed. Thank you for allowing us to participate in your care, it was truly a pleasure having you for our patient!!! Discharge Disposition: HOME SELF-CARE
[2024-07-29 16:04] VITALS: BP 122/79; PULSE 76; RESP 18; TEMP 98.4
--- NOTE | 2024-07-29 19:47 | P.PN ---
Subjective . Patient was seen by Dr. Campuzano and will be following up with Dr. Campuzano Mr. Sylvester is doing well he has had no further chest discomfort He was admitted with severe mid back discomfort that spread to his chest and he was extremely uncomfortable. He described it as a pressure sensation. It started at 11 AM on Monday and it lasted till late in the evening and was finally relieved with morphine. He has had prolonged chest discomfort but his cardiac enzymes have been completely normal His twelve-lead EKG abnormalities are consistent with hypertensive heart disease This patient has had hypertension for a long time. He states that his blood pre ssure at home is reasonably well-controlled and is consistently less than 130/80 mmHg. He had a CT scan a few months back which showed an aorta size of 4.1 cm which is aortic enlargement not aneurysm. Apparently he saw the CT surgeon for this but clearly he is not a candidate for any surgery he requires medical treatment to prevent further growth of this aortic of the aorta with hypertension control. He is already on losartan hydrochlorothiazide and amlodipine When he came in he was in such pain that his blood pressure was very high but here his blood pressure is completely normal Heart sounds are normal breath sounds are clear blood pressure is normal Patient is comfortable CTA of the chest and extracranial arteries of the neck have confirmed atherosclerotic disease calcific in nature and mild and therefore he he should be on statin therapy with the goal of reducing it by at least 30% from baseline. His baseline LDL is 123 mg/dL Impression likely musculoskeletal chest discomfort History of hypertension Minor abnormalities on the EKG consistent with hypertensive changes Normal cardiac enzymes x 3 Evidence of aortic and carotid atherosclerosis calcific in nature and mild by CT scan no evidence for aortic aneurysm. His aorta size was 4.1 cm which is consistent with his history of hypertension Low-salt diet and follow-up with Dr. Campuzano as an outpatient he has been scheduled for an exercise stress echo and an irregular echo today. He may go home after that Update 2D echo showed preserved LV systolic function with mild LVH Ascending aorta 4.1 cm similar to his CT scan a few months back Exercise stress echo showed excellent exercise capacity no ECG or echocardiogr aphic evidence for ischemia Suggest Continue losartan hydrochlorothiazide Continue amlodipine Add atorvastatin 20 mg p.o. daily and aim for an LDL of 70 mg/dL or less at the very minimum Objective - Vital Signs Vital signs: Vital Signs Temp 98.4 F 07/29/24 14:08 Pulse 76 07/29/24 14:08 Resp 18 07/29/24 14:08 BP 122/79 07/29/24 14:08 Pulse Ox 98 07/29/24 14:08 FiO2 Intake & Output 07/29/24 07/29/24 07/30/24 06:59 18:59 06:59 Intake Total 858 Balance 858 Intake: Oral 858 Other: # Voids 1 2 # Bowel Movements 0 - Labs CBC & Chem 7: 07/28/24 03:01 07/29/24 03:18 Labs: Abnormal Lab Results - Last 24 Hours (Table) 07/29/24 Range/Units 03:18 Est GFR (CKD-EPI) 57 L (>=60)
== END 2024-07-29 16:05 | disposition home or self-care (01) ==
LOC: EC 18:36 → 6NMEDSUR 20:39
PROVIDERS: ADMIT Internal Medicine; ATTEND Internal Medicine
DX: R07.89 Other chest pain (principal); R01.1 Cardiac murmur, unspecified; E78.5 Hyperlipidemia, unspecified; E87.1 Hypo-osmolality and hyponatremia; E83.52 Hypercalcemia; E87.8 Other disorders of electrolyte and fluid balance, not elsewhere classified; M54.6 Pain in thoracic spine; G89.29 Other chronic pain; R17 Unspecified jaundice; I10 Essential (primary) hypertension; I65.23 Occlusion and stenosis of bilateral carotid arteries; Z79.82 Long term (current) use of aspirin; Z79.899 Other long term (current) drug therapy; Z87.442 Personal history of urinary calculi
CPT/HCPCS: 36415; 71046; 71260; 74177; 80048; 80053; 80061; 83735; 83880; 84443; 84484; 85025; 85379; 85610; 85730; 93005; 93306; 93351; 94760; 96372; 96374; 99285

== ENCOUNTER 2024-10-02 09:54 | Day surgery (SDC) | payer OTHER ==
[2024-10-01 12:17] VITALS: BMI 25.1
[2024-10-02 10:35] VITALS: RESP 16; TEMP 97.8
[2024-10-02] MEDS: LACTATED RINGERS 1,000 ML IV SCH (10:39)
[2024-10-02] MEDS: IV FLUID CONTINUATION 1,000 ML IV ONE (10:40)
[2024-10-02] MEDS ORDERED: PROPOFOL 10 MG/ML 20 ML VIAL IV ONE (11:25)
[2024-10-02] MEDS ORDERED: LIDOCAINE 1% INJ 10MG/ML (20 ML MDV) ONE (11:25)
--- NOTE | 2024-10-02 11:36 | P.PCN ---
Date of Procedure: 10/02/24 Procedure(s) Performed: BRIEF HISTORY: Patient is a 64-year-old, pleasant, white male scheduled for an upper endoscopy as a part evaluation of iron deficiency anemia.. His last colonoscopy a year ago was normal. He denies any GI symptoms. No abdominal pain, nausea vomiting, melena. No recent NSAID use. PROCEDURE PERFORMED: Esophagogastroduodenoscopy with biopsy. PREOPERATIVE DIAGNOSIS: Iron deficiency anemia. IV sedation per anesthesia. PROCEDURE: After informed consent was obtained, the patient was brought into the endoscopy unit. IV sedation was administered by Anesthesia under continuous monitoring. Initially the Olympus GIF-140 video endoscope was inserted into the mouth. Esophagus intubated without any difficulty. It was gradually advanced into the stomach and duodenum and carefully examined. The bulb of the duodenum appeared normal. In the second part of the duodenum by the ampullary orifice there was mucosal fold thickening noted and biopsies were done from this area. The scope at this time was withdrawn to the stomach, adequately insufflated with air, and upon careful examination, mucosa of the antrum, had mild erythema consistent with gastritis and biopsies were done from this area. Mucosa of the body, cardia and the fundus appeared normal. The scope was then withdrawn into the esophagus. Small sliding-type hiatal hernia noted. The GE junction was located at 39 cm from the incisors. The esophagus appeared normal. There were no erosions or ulcerations seen and the patient tolerated the procedure well. IMPRESSION: 1. Mucosal fold thickening superior to the ampullary orifice status post multiple biopsies. 2. Mild antral gastritis 3. Small hiatal hernia. RECOMMENDATIONS: The findings of this examination were discussed with the patient as well as his family. He was advised to follow-up with the biopsy results..
[2024-10-02 12:10] VITALS: BP 132/86; PULSE 63
== END 2024-10-02 12:33 | disposition home or self-care (01) ==
LOC: ORWHC2ENDO 09:54
PROVIDERS: ATTEND Internal Medicine Gastroenterology
DX: K29.50 Unspecified chronic gastritis without bleeding (principal); K31.89 Other diseases of stomach and duodenum; K44.9 Diaphragmatic hernia without obstruction or gangrene; D50.9 Iron deficiency anemia, unspecified; I10 Essential (primary) hypertension; E78.5 Hyperlipidemia, unspecified; Z85.46 Personal history of malignant neoplasm of prostate; Z87.442 Personal history of urinary calculi; Z79.899 Other long term (current) drug therapy; Z98.890 Other specified postprocedural states
CPT/HCPCS: 88305; 43239; J2003; J2704

== ENCOUNTER → 2025-05-06 | Outpatient (CLI) | payer OTHER | END | disposition home or self-care (01) | LOC: LABWHC1 13:12 | PROVIDERS: ATTEND Urology | DX: C61 Malignant neoplasm of prostate (principal) | CPT/HCPCS: 36415; 84153 ==